=== PATIENT | male | born 1990 | race Caucasian/White ===

== ENCOUNTER 2023-04-12 20:03 | Outpatient (OUT) | payer OTHER, SELFPAY | END 2023-04-12 20:04 | disposition home or self-care (01) | LOC: SLEEP 20:03 | PROVIDERS: PCP Internal Medicine; Visit Provider Internal Medicine | DX: G47.33 Obstructive sleep apnea (adult) (pediatric) (principal) | CPT/HCPCS: 95810 ==

== ENCOUNTER 2023-05-20 21:00 | Outpatient (OUT) | payer OTHER, SELFPAY ==
--- OUTSIDE RECORDS SUMMARY | 2023-05-20 21:03 | XMS_ITS | CCD ---
Author Organization [facility] Care Team Providers Care Drop Board Man Name Role Phone Ok Whyte Primary Care Provider SHAIKH ONTIVEROS Consulting Unavailable SHAIKH ONTIVEROS Attending Unavailable SHAIKH ONTIVEROS Admitting Unavailable SHAIKH ONTIVEROS Primary Care Unavailable Shaikh Ontiveros MD Primary Care Provider Colt BADILLO Attending Unavailable Shaikh Ontiveros MD Primary Care Provider SHAIKH ONTIVEROS Attending Unavailable Shaikh Ontiveros MD Primary Care Provider [phone] SHAIKH ONTIVEROS Referring Unavailable SHAIKH ONTIVEROS Primary Care Unavailable SHAIKH ONTIVEROS Referring Unavailable SHAIKH ONTIVEROS Primary Care Unavailable SHAIKH ONTIVEROS Primary Care Unavailable Medications Current Medications Medication Drug Class(es) Dates Sig (Normalized) Sig (Original) diclofenac sodium 75 mg delayed release oral tablet (1 source) Nonsteroidal Anti-inflammatory Drug Start: 01-26-2018 take 1 tablet by mouth twice daily diclofenac (VOLTAREN) 75 MG EC tablet Indications: Bilateral plantar fasciitis Take 1 tablet by mouth 2 times daily 60 tablet 0 01/26/2018 Active FLUoxetine 10 mg oral capsule (1 source) Serotonin Reuptake Inhibitor Start: 07-27-2019 take 1 capsule by mouth once daily FLUoxetine (PROZAC) 10 MG capsule Indications: Dysthymia Take 1 capsule by mouth daily 90 capsule 0 07/27/2019 Active gabapentin 400 mg oral capsule (11 sources) Anti-epileptic Agent Start: 06-21-2019 End: 07-21-2019 take 1 capsule by mouth three times daily gabapentin (NEURONTIN) 400 MG capsule Indications: Cervical radicular pain Take 1 capsule by mouth 3 times daily for 30 days. 90 capsule 0 06/21/2019 Active meloxicam 15 mg oral tablet (2 sources) Nonsteroidal Anti-inflammatory Drug Start: 08-30-2019 End: 01-20-2021 take 1 tablet by mouth once daily meloxicam (MOBIC) 15 MG tablet Indications: Bilateral plantar fasciitis Take 1 tablet by mouth daily 90 tablet 0 08/30/2019 01/20/2021 Discontinued (LIST CLEANUP) naproxen 500 mg oral tablet (3 sources) Nonsteroidal Anti-inflammatory Drug Start: 01-20-2021 take 1 tablet by mouth twice daily naproxen (NAPROSYN) 500 MG tablet Take 1 tablet by mouth 2 times daily 20 tablet 0 01/20/2021 Active Problems Active Problems Problem Classification Problem Date Documented Date Episodic/Chronic Anxiety disorders (17 sources) Anxiety; Translations: [Anxiety disorder, unspecified] Onset: 10-01-2016 10-01-2016 Chronic Headache; including migraine (4 sources) Episodic tension-type headache; Translations: [Episodic tension-type headache, not intractable] Onset: 03-18-2023 03-18-2023 Chronic Immunizations and screening for infectious disease (6 sources) Patient encounter status; Translations: [Encounter for screening for infections with a predominantly sexual mode of transmission] Onset: 03-18-2023 03-18-2023 Episodic Malaise and fatigue (4 sources) Fatigue; Translations: [Chronic fatigue, unspecified] Onset: 03-18-2023 03-18-2023 Chronic Mood disorders (2 sources) Bipolar II disorder; Translations: [Bipolar II disorder] Onset: 03-18-2023 03-18-2023 Chronic Other connective tissue disease (1 source) Pain in right hand; Translations: [Pain in right hand] Episodic Residual codes; unclassified (12 sources) Chronic pain; Translations: [Chronic left shoulder pain] Onset: 10-01-2016 10-01-2016 Chronic Residual codes; unclassified (4 sources) Obstructive sleep apnea syndrome; Translations: [Obstructive sleep apnea (adult) (pediatric)] Onset: 03-18-2023 03-18-2023 Chronic Sexually transmitted infections (not HIV or hepatitis) (1 source) Sexually transmitted infectious disease; Translations: [STI (sexually transmitted infection)] Episodic Spondylosis; intervertebral disc disorders; other back problems (1 source) Cervical nerve root pain; Translations: [Cervical radicular pain] Episodic Superficial injury; contusion (1 source) Contusion of right elbow; Translations: [Contusion of right elbow, initial encounter] Episodic Viral infection (1 source) Viral disease; Translations: [Viral infection, unspecified] Episodic Past or Other Problems Problem Classification Problem Date Documented Date Episodic/Chronic Fluid and electrolyte disorders (15 sources) Hypokalemia; Translations: [Hypokalemia] Onset: 10-01-2016 10-01-2016 Episodic Genitourinary symptoms and ill-defined conditions (15 sources) Delay when starting to pass urine; Translations: [Hesitancy of micturition] Onset: 10-01-2016 10-01-2016 Episodic Other injuries and conditions due to external causes (15 sources) Pseudoarthrosis of spine; Translations: [Unspecified fracture of unspecified lumbar vertebra, subsequent encounter for fracture with nonunion] Onset: 12-08-2016 12-08-2016 Episodic Other lower respiratory disease (4 sources) Shortness of breath; Translations: [SHORTNESS OF BREATH] Onset: 10-10-2020 Episodic Other non-traumatic joint disorders (3 sources) Chronic pain of left upper limb; Translations: [Pain in left shoulder] Onset: 10-01-2016 10-01-2016 Episodic Other non-traumatic joint disorders (2 sources) Pain in elbow; Translations: [Elbow Pain] Onset: 08-03-2022 Episodic Residual codes; unclassified (15 sources) High risk sexual behavior; Translations: [High risk heterosexual behavior] Onset: 01-05-2017 01-05-2017 Episodic Residual codes; unclassified (1 source) High risk heterosexual behavior; Translations: [High risk heterosexual behavior] Episodic Results Test Name Value Interpretation Reference Range Facility Chlamydia/GC DNA, Uron 04-21 Chlamydia Probe, Ur Negative Normal NEG [facility] Comment on above: Result Comment: CHLA MYDIA TRACHOMATIS DNA not detected by nucleic acid amplification. This test is intended for medical purposes only and is not valid for the evaluation of suspected sexual abuse or for other forensic purposes. In certain contexts, culture may be required to meet applicable laws and regulations for diagnosis of C. trachomatis and N. gonorrhoeae infections. Per 2014 CDC recommendations, this test does not include confirmation of positive results by an alternative nucleic acid target. Performed By: #### U CGP #### [facility] [address] [place] [id number] Patient Safety Manager: Ethan Amezcua MD Gonorrhea Probe, Ur Negative Normal NEG [facility] Comment on above: Result Comment: NEIS SERIA GONORRHOEAE DNA not detected by nucleic acid amplification. This test is intended for medical purposes only and is not valid for the evaluation of suspected sexual abuse or for other forensic purposes. In certain contexts, culture may be required to meet applicable laws and regulations for diagnosis of C. trachomatis and N. gonorrhoeae infections. Per 2014 CDC recommendations, this test does not include confirmation of positive results by an alternative nucleic acid target. Performed By: #### U CGP #### [facility] [address] [place] [id number] Patient Safety Manager: Ethan Amezcua MD HIV Ag/Abon 04-13-2023 HIV Ag/Ab Non-Reactive Normal [facility] Comment on above: Result Comment: No l aboratory evidence of HIV infection. If acute HIV infection is suspected, consider testing for HIV-1 RNA. Performed By: #### T REP, HIVCMB, HSVPR, HBS, AHCV #### [facility] [address] [place] [id number] Patient Safety Manager: Ethan Amezcua MD Hep B Surf Agon 04-13-2023 Hep B Surf Ag Non-Reactive Normal [facility] Comment on above: Performed By: #### T REP, HIVCMB, HSVPR, HBS, AHCV #### [facility] [address] [place] [id number] Patient Safety Manager: Ethan Amezcua MD Hep C Abon 04-13-2023 Hep C Ab Non-Reactive Normal [facility] Comment on above: Result Comment: The hepatitis C procedure used in our laboratory is a Chemiluminescent test specific for three recombinant HCV antigens. A negative anti-HCV result indicates that the antibodies to hepatitis C virus are not present at this time. Individuals with reactive anti-HCV should be considered infected and infectious until proven otherwise. Confirmation of all equivocal or reactive results is recommended by ordering HCV RNA by PCR. Performed By: #### T REP, HIVCMB, HSVPR, HBS, AHCV #### [facility] [address] [place] [address] [id number] Patient Safety Manager: Ethan Amezcua MD Herpes Profileon 04-13-2023 Herpes Type I, IgG 1.29 High <0.91 [facility] Comment on above: Result Comment: Reference Range: <=0.90 Negative 0.91-1.09 Equivocal >=1.10 Positive Performed By: #### T REP, HIVCMB, HSVPR, HBS, AHCV #### [address] [id number] Patient Safety Manager: Ethan Amezcua MD Herpes Type I/II,IgM 0.71 Normal <0.91 [facility] Comment on above: Result Comment: Reference Range: <=0.90 Negative 0.91-1.09 Equivocal >=1.10 Positive If positive, an IgM result indicates a current or recent infection. This test does not differentiate type I from type II. No current reference test is available for this. If IgG tests are ordered and are negative, consider retesting in 2 to 3 weeks. Performed By: #### T REP, HIVCMB, HSVPR, HBS, AHCV #### [facility] [address] [place] [address] [phone] Patient Safety Manager: Ethan Amezcua MD Herpes Type II, IgG 3.88 High <0.91 [facility] Comment on above: Result Comment: Reference Range: <=0.90 Negative 0.91-1.09 Equivocal >=1.10 Positive Performed By: #### T REP, HIVCMB, HSVPR, HBS, AHCV #### [address] [id number] Patient Safety Manager: Ethan Amezcua MD T.pallidum Ab Screenon 04-12 T.pallidum Ab Screen Non-Reactive Normal NR [facility] Comment on above: Result Comment: T. pallidum antibodies are not detected. There is no serological evidence of infection with T. pallidum (early primary syphilis cannot be excluded). Retest in 2-4 weeks if syphilis is clinically suspect. Performed By: #### T REP, HIVCMB, HSVPR, HBS, AHCV #### [facility] [address] [place] [address] Patient Safety Manager: Ethan Amezcua MD No Panel Informationon 08-03 No acute radiographic abnormality. [facility] EXAMINATION: THREE XRAY VIEWS OF THE RIGHT ELBOW; THREE XRAY VIEWS OF THE RIGHT HAND 08/03/2022 2:51 pm COMPARISON: None. HISTORY: ORDERING SYSTEM PROVIDED HISTORY: pain after fall 2 weeks ago TECHNOLOGIST PROVIDED HISTORY: pain after fall 2 weeks ago FINDINGS: Right elbow: No acute fracture dislocation. No joint effusion. Right hand: No acute fracture or dislocation. No appreciable soft tissue swelling. [facility] Matti Stanley MD - 08/03/2022 EXAMINATION: THREE XRAY VIEWS OF THE RIGHT ELBOW; THREE XRAY VIEWS OF THE RIGHT HAND 08/03/2022 2:51 pm COMPARISON: None. HISTORY: ORDERING SYSTEM PROVIDED HISTORY: pain after fall 2 weeks ago TECHNOLOGIST PROVIDED HISTORY: pain after fall 2 weeks ago FINDINGS: Right elbow: No acute fracture dislocation. No joint effusion. Right hand: No acute fracture or dislocation. No appreciable soft tissue swelling. IMPRESSION: No acute radiographic abnormality. [facility] No Panel InformationOrdered By: Matti Stanely on 08-03-2022 [facility] Work Phone: XR ELBOW RIGHT (MIN 3 VIEWS) on 08-03-2022 XR ELBOW RIGHT (MIN 3 VIEWS) EXAMINATION: THREE XRAY VIEWS OF THE RIGHT ELBOW; THREE XRAY VIEWS OF THE RIGHT HAND 08/03/2022 2:51 pm COMPARISON: None. HISTORY: ORDERING SYSTEM PROVIDED HISTORY: pain after fall 2 weeks ago TECHNOLOGIST PROVIDED HISTORY: pain after fall 2 weeks ago FINDINGS: Right elbow: No acute fracture dislocation. No joint effusion. Right hand: No acute fracture or dislocation. No appreciable soft tissue swelling. IMPRESSION: No acute radiographic abnormality. Interpreted by: Matti Stanley MD Signed by: Matti Stanley MD 08/03/22 Final result Normal [facility] Radiology Study observation (narrative) [facility] XR HAND RIGHT (MIN 3 VIEWS)o n 08-03-2022 XR HAND RIGHT (MIN 3 VIEWS) EXAMINATION: THREE XRAY VIEWS OF THE RIGHT ELBOW; THREE XRAY VIEWS OF THE RIGHT HAND 08/03/2022 2:51 pm COMPARISON: None. HISTORY: ORDERING SYSTEM PROVIDED HISTORY: pain after fall 2 weeks ago TECHNOLOGIST PROVIDED HISTORY: pain after fall 2 weeks ago FINDINGS: Right elbow: No acute fracture dislocation. No joint effusion. Right hand: No acute fracture or dislocation. No appreciable soft tissue swelling. IMPRESSION: No acute radiographic abnormality. Interpreted by: Matti Stanley MD Signed by: Matti Stanley MD 08/03/22 Final result Normal [facility] Radiology Study observation (narrative) [facility] Residential Documentson 11-28-2021 Residential Documents [id number] Normal [facility] COVID-19, Rapidon 01-20-2021 SARS-CoV-2 (COVID-19) RNA SHEN+probe Ql (Unsp spec) Not detected Not Detected [facility] Comment on above: Rapid NAAT: The specimen is NEGATIVE for SARS-CoV-2, the novel coronavirus associated with COVID-19. The ID NOW COVID-19 assay is designed to detect the virus that causes COVID-19 in patients with signs and symptoms of infection who are suspected of COVID-19. An individual without symptoms of COVID-19 and who is not shedding SARS-CoV-2 virus would expect to have a negative (not detected) result in this assay. Negative results should be treated as presumptive and, if inconsistent with clinical signs and symptoms or necessary for patient management, should be tested with an alternative molecular assay. Negative results do not preclude SARS-CoV-2 infection and should not be used as the sole basis for patient management decisions. Fact sheet for Healthcare Providers: https://www.fda.gov/media/925761/download Fact sheet for Patients: https://www.fda.gov/media/905816/download Methodology: Isothermal Nucleic Acid Amplification Specimen Description .NASOPHARYNGEAL SWAB [facility] CBC AUTO DIFFon 10-10-2020 BASO # 0.0 103/ul Normal 0.0-0.1 [facility] Comment on above: Performed By: #### C BC #### [facility] [address] [place], [place] [id number] Papa Vandana Basophils/100 WBC (Bld) 0.4 % Normal 0.2-2.0 [facility] Comment on above: Performed By: #### C BC #### [facility] [address] [place], [place] [id number] Papa Vandana EO # 0.1 103/ul Normal 0.0-0.7 [facility] Comment on above: Performed By: #### C BC #### [facility] [address] [place], [place] [id number] Papa Vandana Eosinophils/100 WBC (Bld) 1.0 % Normal 0.9-7.0 [facility] Comment on above: Performed By: #### C BC #### [facility] [address] [place] [address] Papa Vandana Erythrocyte distribution width (RBC) [Ratio] 12.3 % Normal 11.0-15.0 [facility] Comment on above: Performed By: #### C BC #### [facility] [address] [place], [place] [id number] Papa Vandana Hematocrit (Bld) [Volume fraction] 50.6 % Normal 42.0-54.0 [facility] Comment on above: Performed By: #### C BC #### [facility] [address] [place], [place] [id number] Papa Vandana Hemoglobin (Bld) [Mass/Vol] 16.8 g/dL Normal 14.0-18.0 [facility] Comment on above: Performed By: #### C BC #### [facility] [address] [place] [address] Papa Vandana IG # 0.01 10e3/ul Normal 0.00-0.03 [facility] Comment on above: Performed By: #### C BC #### [facility] [address] [place] [address] Papa Vandana IG % 0.1 % Normal 0.0-0.5 [facility] Comment on above: Performed By: #### C BC #### [facility] [address] [phone] Papa Vandana LYMPH # 1.4 103/ul Normal 1.2-3.8 [facility] Comment on above: Performed By: #### C BC #### [facility] [address] [place] [id number] Papa Vandana Lymphocytes/100 WBC (Bld) 17.9 % Critically low 20.5-60.0 [facility] Comment on above: Performed By: #### C BC #### [facility] [address] [place], [place] [id number] Appa Vandana MANUAL DIFF REQ NO Normal [facility] Comment on above: Performed By: #### C BC #### [facility] [address] [place], [place] [id number] Papa Vandana MCH (RBC) [Entitic mass] 29.6 pg Normal 25.9-34.0 [facility] Comment on above: Performed By: #### C BC #### [facility] [address] [place], [place] [id number] Papa Vandana MCHC (RBC) [Mass/Vol] 33.2 g/dL Normal 29.9-35.2 [facility] Comment on above: Performed By: #### C BC #### [facility] [address] [place], [place] [id number] Papa Vandana MCV (RBC) [Entitic vol] 89.2 fL Normal 80.0-94.0 [facility] Comment on above: Performed By: #### C BC #### [facility] [address] [place], [place] [id number] Papa Vandana MONO # 0.5 103/ul Normal 0.3-0.8 [facility] [place] [facility] Comment on above: Performed By: #### C BC #### [facility] [address] [place], [place] [id number] Papa Vandana Monocytes/100 WBC (Bld) 6.1 % Normal 1.7-12.0 [facility] [place] [facility] Comment on above: Performed By: #### C BC #### [facility] [address] [place], [place] [id number] Papastefanie Danielleen NEUT # 5.8 103/ul Normal 1.4-6.5 [facility] [place] [facility] Comment on above: Performed By: #### C BC #### [facility] [address] [place], [place] [id number] Papa Ross Neutrophils/100 WBC (Bld) 74.5 % Normal 43.0-75.0 [facility] [place] [facility] Comment on above: Performed By: #### C BC #### [facility] [address] [place], [place] [id number] Papastefanie Ross Platelet mean volume (Bld) [Entitic vol] 10.4 fL Normal 9.5-13.5 [facility] [place] [facility] Comment on above: Performed By: #### C BC #### [facility] [address] [place], [place] [id number] Papa Vandana PLT 268 103/ul Normal 150-450 [facility] [place] [facility] Comment on above: Performed By: #### C BC #### [facility] [address] [place], [place] [id number] Papa Vandana RBC 5.67 106/ul Normal 4.70-6.10 [facility] [place] [facility] Comment on above: Performed By: #### C BC #### [facility] [address] [place], [place] [id number] Papa Vandana WBC 7.8 103/ul Normal 4.0-11.0 [facility] [place] [facility] Comment on above: Performed By: #### C BC #### [facility] [address] [place], [place] [id number] Papa Ross PROF 14(COMP METB)on 021 Albumin [Mass/Vol] 4.4 g/dL Normal 3.5-5.0 [facility] Comment on above: Performed By: #### C MP #### [facility] [address] [place], [place] [id number] Papa Vandana Albumin/Globulin [Mass ratio] 1.5 {ratio} Normal [facility] Comment on above: Performed By: #### C MP #### [facility] [address] [place], [place] [phone] Papa Vandana ALP [Catalytic activity/Vol] 59 U/L Normal 38-126 [facility] Comment on above: Performed By: #### C MP #### [facility] [address] [place], [place] [id number] Papa Vandana ALT [Catalytic activity/Vol] 52 U/L Normal 21-72 [facility] Comment on above: Performed By: #### C MP #### [facility] [address] [place] [address] Papa Vandana Anion gap [Moles/Vol] 11.9 mmol/L Normal [facility] Comment on above: Performed By: #### C MP #### [facility] [address] [place] [address] Papa Vandana AST [Catalytic activity/Vol] 21 U/L Normal 17-59 [facility] Comment on above: Performed By: #### C MP #### [facility] [address] [place] [address] Papa Vandana Bilirubin [Mass/Vol] 0.6 mg/dL Normal 0.2-1.3 [facility] Comment on above: Performed By: #### C MP #### [facility] [address] [place], [place] [id number] Papa Vandana Calcium [Mass/Vol] 9.2 mg/dL Normal 8.4-10.2 [facility] Comment on above: Performed By: #### C MP #### [facility] [address] [place] [address] Papa Vandana Chloride [Moles/Vol] 103 mmol/L Normal 98-107 [facility] Comment on above: Performed By: #### C MP #### [facility] [address] [place], [place] [id number] Papa Vandana CO2 [Moles/Vol] 31.1 mmol/L Critically high 22.0-30.0 [facility] Comment on above: Performed By: #### C MP #### [facility] [address] [place] [address] Papa Vandana Creatinine [Mass/Vol] 1.23 mg/dL Normal 0.66-1.25 [facility] Comment on above: Performed By: #### C MP #### [facility] [address] [place], [place] [address] Papa Vandana EGFR-AF MARTINIQUAIS >60 Normal >=60 [facility] Comment on above: Performed By: #### C MP #### [facility] [address] [place], [place] [address] Papa Vandana EGFR-NON AF MARTINIQUAIS >60 Normal >=60 [facility] [place] [facility] Comment on above: Performed By: #### C MP #### [facility] [address] [place], [place] [address] Papa Vandana Globulin (S) [Mass/Vol] 3.0 g/dL Normal [facility] [place] [facility] Comment on above: Performed By: #### C MP #### [facility] [address] [address] Papa Vandana Glucose [Mass/Vol] 86 mg/dL Normal 74-106 [facility] Comment on above: Performed By: #### C MP #### [facility] [address] [place], [place] [id number] Papa Vandana Potassium [Moles/Vol] 4.0 mmol/L Normal 3.4-5.0 [facility] [place] [facility] Comment on above: Performed By: #### C MP #### [facility] [address] [place], [place] [id number] Papa Vandana Protein [Mass/Vol] 7.4 g/dL Normal 6.1-8.2 [facility] Comment on above: Performed By: #### C MP #### [facility] [address] [place] [address] Papa Vandana Sodium [Moles/Vol] 142 mmol/L Normal 137-145 [facility] Comment on above: Performed By: #### C MP #### [facility] [address] [place], [place] [id number] Papa Vandana Urea nitrogen [Mass/Vol] 18.0 mg/dL Normal 9.0-20.0 [facility] [place] [facility] Comment on above: Performed By: #### C MP #### [facility] [address] [place], [place] [id number] Papa Vandana Urea nitrogen/Creatinine [Mass ratio] 14.6 mg/mg Normal [facility] [place] [facility] Comment on above: Performed By: #### C #### [facility] [address] [place], [place] [address] Papa Ross XR CERVICAL SPINE (2-3 VIEWS )on 06-21-2019 Minimal reversal of the normal cervical lordosis without acute abnormality. [place], [place] EXAMINATION: 5 XRAY VIEWS OF THE CERVICAL SPINE 06/21/2019 11:56 am COMPARISON: Cervical spine radiographs performed 02/20/2016. HISTORY: ORDERING SYSTEM PROVIDED HISTORY: Cervical radicular pain TECHNOLOGIST PROVIDED HISTORY: pain FINDINGS: There is minimal reversal of the normal cervical lordosis. The vertebral body heights are maintained. The disc spaces are maintained. The facet joints are aligned. There is no spondylolisthesis. The prevertebral soft tissues are unremarkable. The lung apices are without acute process. [place], [place] Ashutosh, [employer] Incoming Radiant Results From [employer] - 06/21/2019 1:13 PM EDT EXAMINATION: 5 XRAY VIEWS OF THE CERVICAL SPINE 06/21/2019 11:56 am COMPARISON: Cervical spine radiographs performed 02/20/2016. HISTORY: ORDERING SYSTEM PROVIDED HISTORY: Cervical radicular pain TECHNOLOGIST PROVIDED HISTORY: pain FINDINGS: There is minimal reversal of the normal cervical lordosis. The vertebral body heights are maintained. The disc spaces are maintained. The facet joints are aligned. There is no spondylolisthesis. The prevertebral soft tissues are unremarkable. The lung apices are without acute process. IMPRESSION: Minimal reversal of the normal cervical lordosis without acute abnormality. [place], [place] HIV Screenon 09-29-2018 HIV Ag/Ab NONREACTIVE NONREACTIVE [place], [place] Comment on above: No laboratory eviden ce of HIV infection. If acute HIV infection is suspected, consider testing for HIV-1 RNA. T. Pallidum Abon 09-29-2018 T. pallidum, IgG NONREACTIVE NONREACTIVE [place], [place] Comment on above: T. pallidum antibodies are not detected. There is no serological evidence of infection with T. pallidum (early primary syphilis cannot be excluded). Retest in 2-4 weeks if syphilis is clinically suspect. Vital Signs Date Time Vital Sign Value Performing Clinician Facility 03-18-2023 15:32-0500 Body height 182.9 cm Shaikh Weston BECKMAN Work Phone: [facility] 03-18-2023 15:32-0500 Body mass index (BMI) [Ratio] 27.26 kg/m2 Shaikh Weston BECKMAN Work Phone: [facility] 03-18-2023 15:32-0500 Body temperature 97.81 [degF] Shaikh Weston BECKMAN Work Phone: [facility] 03-18-2023 15:32-0500 Body weight 91.17 kg Shaikh Weston BECKMAN Work Phone: [facility] 03-18-2023 15:32-0500 Diastolic blood pressure 76 mm[Hg] Shaikh Weston BECKMAN Work Phone: [facility] 03-18-2023 15:32-0500 Heart rate 85 /min Shaikh Weston BECKMAN Work Phone: [facility] 03-18-2023 15:32-0500 SaO2% (BldA) [Mass fraction] 97 % Shaikh Weston BECKMAN Work Phone: [facility] 03-18-2023 15:32-0500 Systolic blood pressure 104 mm[Hg] Shaikh Weston BECKMAN Work Phone: [facility] 08-03-2022 14:38-0400 Diastolic blood pressure 79 mm[Hg] Shaikh Weston BECKMAN Work Phone: [facility] 08-03-2022 14:38-0400 Systolic blood pressure 117 mm[Hg] Shaikh Weston BECKMAN Work Phone: [facility] 08-03-2022 14:37-0400 Body mass index (BMI) [Ratio] 28.48 kg/m2 Shaikh Weston BECKMAN Work Phone: [facility] 08-03-2022 14:37-0400 Body temperature 98.4 [degF] Shaikh Weston BECKMAN Work Phone: [facility] [employer] 08-03-2022 14:37-0400 Body weight 95.25 kg Shaikh Weston BECKMAN Work Phone: [facility] [employer] 08-03-2022 14:37-0400 Heart rate 81 /min Shaikh Weston BECKMAN Work Phone: [facility] [employer] 08-03-2022 14:37-0400 Respiratory rate 16 /min Shaikh Weston BECKMAN Work Phone: [facility] [employer] 08-03-2022 14:37-0400 SaO2% (BldA) [Mass fraction] 97 % Shaikh Weston BECKMAN Work Phone: [facility] [employer] 01-20-2021 10:55-0500 Body mass index (BMI) [Ratio] 28.48 kg/m2 Ehsan Rivas MD Work Phone: [employer] 01-20-2021 10:55-0500 Body temperature 98.49 [degF] Ehsan Rivas MD Work Phone: [employer] 01-20-2021 10:55-0500 Body weight 95.25 kg Ehsan Rivas MD Work Phone: [employer] 01-20-2021 10:55-0500 Diastolic blood pressure 76 mm[Hg] Ehsan Rivas MD Work Phone: [employer] 01-20-2021 10:55-0500 Heart rate 77 /min Ehsan Rivas MD Work Phone: [employer] 01-20-2021 10:55-0500 Respiratory rate 16 /min Ehsan Rivas MD Work Phone: [employer] 01-20-2021 10:55-0500 SaO2% (BldA) [Mass fraction] 99 % Ehsan Rivas MD Work Phone: [facility] 01-20-2021 [id number] Systolic blood pressure 132 mm[Hg] Ehsan Rivas MD Work Phone: [facility] Encounters Encounter Date Encounter Type Care Provider Facility Start: 04-21-2023 End: 04-22-2023 ambulatory [facility] Start: 04-12-2023 End: 04-13-2023 ambulatory [facility] Start: 03-18-2023 End: 03-18-2023 ambulatory [facility] Not Available Start: 03-18-2023 End: 03-18-2023 Office outpatient visit 25 minutes Shaikh Weston BECKMAN Work Phone: [facility] Comment on above: Chronic fatigue (Betsy benjamín Dx); VAN (obstructive sleep apnea); Screening for STD (sexually transmitted disease); Episodic tension-type headache, not intractable Start: 08-03-2022 Emergency department patient visit [facility] Start: 08-03-2022 End: 08-03-2022 Emergency department patient visit Shaikh Weston BECKMAN Work Phone: [facility] ED Comment on above: Contusion of right e lbow, initial encounter (Primary Dx); Right hand pain Start: 10-31-2021 ambulatory Colt BADILLO Facility: Residential Start: 07-15-2021 End: 07-15-2021 Subsequent hospital visit by physician Drake Covid Screening Schedule [facility] Covid Screening Comment on above: Arrived Start: 01-20-2021 End: 01-20-2021 Emergency department patient visit Ehsan Rivas MD Work Phone: [facility] ED Comment on above: Viral illness (Prima ry Dx) Start: 10-10-2020 End: 10-11-2020 ambulatory [facility] Facility: Start: 03-20-2020 End: 03-20-2020 Subsequent hospital visit by physician Ok [facility]YS[facility] Comment on above: STI (sexually transm itted infection) Start: 07-28-2019 End: 07-28-2019 Subsequent hospital visit by physician Farhat Gillette [facility] Physical Therapy Start: 07-25-2019 End: 07-25-2019 Subsequent hospital visit by physician Lucas Longoria [facility] Physical Therapy Comment on above: Arrived Start: 07-21-2019 End: 07-21-2019 Subsequent hospital visit by physician Lucas Longoria [facility] Physical Therapy Comment on above: Arrived Start: 07-18-2019 End: 07-18-2019 Subsequent hospital visit by physician Kendrick Iyer [facility] Physical Therapy Start: 07-14-2019 End: 07-14-2019 Subsequent hospital visit by physician Cheri Huang [facility] Physical Therapy Comment on above: Arrived Start: 07-11-2019 End: 07-11-2019 Subsequent hospital visit by physician Kendrick Iyer [facility] Physical Therapy Comment on above: Arrived Start: 07-07-2019 End: 07-07-2019 Subsequent hospital visit by physician Cheri Huang [facility] Physical Therapy Start: 06-28-2019 End: 06-28-2019 Subsequent hospital visit by physician Farhat Gillette [facility] Physical Therapy Comment on above: Arrived Start: 06-21-2019 End: 06-23-2019 Subsequent hospital visit by physician [facility] Erika Haley Room 4 [facility] Radiology Comment on above: Cervical radicular p ain Start: 09-29-2018 End: 09-29-2018 Subsequent hospital visit by physician Ok Whyte [facility] Laboratory Comment on above: High risk heterosexu al behavior Procedures Date Procedure Procedure Detail Performing Clinician Start: 08-03-2022 End: 08-03-2022 Radex elbow complete minimum 3 views [place]t Park PA-C Work Phone: Start: 01-20-2021 COVID-19, RAPID Ehsan campbell MD Work Phone: Start: 06-21-2019 Radex spine cervical 2 or 3 views Ok Osorio Might Work Phone: Start: 09-29-2018 Antibody hiv-1&hiv-2 single result Ok Osorio Might Work Phone: Start: 09-29-2018 T. PALLIDUM AB Ok Osorio Might Work Phone: Plan of Treatment Date Care Activity Detail Author Start: 03-18-2023 End: 03-18-2024 CBC W Auto Differential panel - Blood CBC and differential Lab Routine Chronic fatigue Expected: 03/18/2023 (Approximate), Expires: 03/18/2024 [facility] Healthcare Comment on above: Expected: 03/18/2023 (Approximate), Expires: 03/18/2024 Start: 03-18-2023 End: 03-18-2024 CHLAMYDIA/GC BY PCR URINE ([facility]) CHLAMYDIA/GC BY PCR URINE ([facility]) Lab Routine Screening for STD (sexually transmitted disease) Expected: 03/18/2023 (Approximate), Expires: 03/18/2024 [facility] Healthcare Comment on above: Expected: 03/18/2023 (Approximate), Expires: 03/18/2024 Start: 03-18-2023 End: 03-18-2024 Hepatitis B virus surface Ag [Presence] in Serum or Plasma by Immunoassay Hepatitis B surface antigen Lab Routine Screening for STD (sexually transmitted disease) Expected: 03/18/2023 (Approximate), Expires: 03/18/2024 [facility] Healthcare Comment on above: Expected: 03/18/2023 (Approximate), Expires: 03/18/2024 Start: 03-18-2023 End: 03-18-2024 Hepatitis C virus Ab [Presence] in Serum or Plasma by Immunoassay Hepatitis C antibody Lab Routine Screening for STD (sexually transmitted disease) Expected: 03/18/2023 (Approximate), Expires: 03/18/2024 [facility] Healthcare Comment on above: Expected: 03/18/2023 (Approximate), Expires: 03/18/2024 Start: 03-18-2023 End: 03-18-2024 HIV-1/HIV-2 antigen/antibody combination immunoassay HIV 1/2 antibodies, rapid Lab Routine Screening for STD (sexually transmitted disease) Expected: 03/18/2023 (Approximate), Expires: 03/18/2024 [facility] Healthcare Comment on above: Expected: 03/18/2023 (Approximate), Expires: 03/18/2024 Start: 03-18-2023 End: 03-18-2024 HSV 1/2 AB (IGM),IFA W/RFL TO TITER HSV 1/2 AB (IGM),IFA W/RFL TO TITER Lab Routine Screening for STD (sexually transmitted disease) Expected: 03/18/2023 (Approximate), Expires: 03/18/2024 [facility] Comment on above: Expected: 03/18/2023 (Approximate), Expires: 03/18/2024 Start: 03-18-2023 End: 03-18-2024 HSV 1/2 IGG,TYPE SPECIFIC AB HSV 1/2 IGG,TYPE SPECIFIC AB Lab Routine Screening for STD (sexually transmitted disease) Expected: 03/18/2023 (Approximate), Expires: 03/18/2024 [facility] Comment on above: Expected: 03/18/2023 (Approximate), Expires: 03/18/2024 Start: 03-18-2023 End: 03-18-2024 Reagin Ab [Presence] in Serum by RPR RPR Lab Routine Screening for STD (sexually transmitted disease) Expected: 03/18/2023 (Approximate), Expires: 03/18/2024 [facility] Comment on above: Expected: 03/18/2023 (Approximate), Expires: 03/18/2024 Start: 03-18-2023 End: 03-18-2024 TSH W/REFLEX TO FT4 TSH W/REFLEX TO FT4 Lab Routine Chronic fatigue Expected: 03/18/2023 (Approximate), Expires: 03/18/2024 [facility] Work Phone: Comment on above: Expected: 03/18/2023 (Approximate), Expires: 03/18/2024 Start: 10-09-2022 Influenza vaccination Influenza Vacc ine (#1) [facility] Start: 09-08-2022 Influenza vaccination Flu vacc ine (Season Ended) [facility] Start: 10-09-2021 Influenza vaccination Flu vacc ine (Season Ended) [facility] Start: 10-09-2020 Influenza vaccination Flu vaccine (# 1) [facility] Start: 06-20-2020 DTaP/Tdap/Td vaccine (1 - Tdap) DTaP/Tdap/Td vaccine (1 - Tdap) [facility]- [place], [place] Comment on above: Postponed from 11/24 (Patient Refused) Start: 01-29-2020 End: 01-29-2020 Office Visit 01/29/2020 Office Visit Primary Care Ok Whyte, COMMERCIAL CENSUS TAKER - HYDRAULIC JACK OPERATOR [address], [place] [id number] [facility] Start: 12-03-2019 Influenza vaccination Flu vacc ine (Season Ended) [place], [place] Comment on above: Postponed from 10/09 (Patient Refused) Start: 12-03-2019 Varicella vaccine (1 of 2 - 2-dose childhood series) Varicella vaccine (1 of 2 - 2-dose childhood series) [place] Comment on above: Postponed from 11/24 (Patient Refused) Start: 10-10-2019 Influenza vaccination Flu vaccine (# 1) [facility] Work Phone: Start: 07-28-2019 End: 07-28-2019 Appointment 07/28/2019 Appointment Physical Therapy Farhat Gillette PT [facility] Start: 07-27-2019 End: 07-27-2019 Office Visit 07/27/2019 Office Visit Primary Care Ok Whyte, COMMERCIAL CENSUS TAKER - HYDRAULIC JACK OPERATOR [address] [place] [address] [phone] [facility] Start: 07-25-2019 End: 07-25-2019 Appointment 07/25/2019 Appointment Physical Therapy [facility] Start: 07-21-2019 End: 07-21-2019 Appointment 07/21/2019 Appointment Physical Therapy [facility] Start: 07-21-2019 End: 07-21-2019 Appointment 07/21/2019 Appointment Physical Therapy [facility] Start: 07-18-2019 End: 07-18-2019 Appointment 07/18/2019 Appointment Physical Therapy Kendrick Iyer Physical [facility] Start: 07-14-2019 End: 07-14-2019 Appointment [facility] Start: 07-11-2019 End: 07-11-2019 Appointment 07/11/2019 Appointment Physical Therapy Kendrick Iyer Physical Therapy Start: 07-07-2019 End: 07-07-2019 Appointment 07/07/2019 Appointment Physical Therapy Cheri Huang PTA [facility] Start: 07-04-2019 End: 07-04-2019 Appointment 07/04/2019 Appointment Physical Therapy Kendrick Iyer [facility] Start: 01-26-2019 DTaP/Tdap/Td vaccine (1 - Tdap) DTaP/Tdap/Td vaccine (1 - Tdap) [place] Comment on above: Postponed from 11/24 (Patient Refused) Start: 10-13-2018 End: 10-13-2018 Office Visit 10/13/2018 Office Visit Primary Care Ok Whyte, COMMERCIAL CENSUS TAKER - HYDRAULIC JACK OPERATOR [address] [id number] [phone] [facility] Start: 10-09-2018 Influenza vaccination Flu vaccine (# 1) [place] Start: 2009 DTaP/Tdap/Td vaccine (1 - Tdap) DTaP/Tdap/Td vaccine (1 - Tdap) [facility] Start: 11-25-2003 Varicella Vaccine (1 of 2 - 13+ 2-dose series) Varicella Vaccine (1 of 2 - 13+ 2-dose series) [place], [place] Start: 2002 COVID-19 Vaccine (1) COVID-19 Vaccin e (1) [facility] Start: 2002 [facility] Start: 2002 Depression Screen Depression Screen [facility] Start: 11-25-1995 COVID-19 Vaccine (1) COVID-19 Vaccin e (1) [facility] Start: 11-25-1991 Varicella vaccine (1 of 2 - 2-dose childhood series) Varicella vaccine (1 of 2 - 2-dose childhood series) [facility] Start: 05-26-1991 COVID-19 Vaccine (#1) COVID-19 Vacci ne (#1) [facility] End: 03-20-2020 Chlamydia/GC DNA, Urine Chlamydia/GC DNA, Urine Microbiology Routine STI (sexually transmitted infection) 1 Occurrences starting 03/20/2020 until 03/20/[address] [facility] Work Phone: Comment on above: 1 Occurrences starti ng 03/20/2020 until 03/20/2020 Chlamydia/GC DNA, Urine [place], [place] End: 09-29-2018 Chlamydia/GC DNA, Urine Chlamydia/GC DNA, Urine Microbiology Routine High risk heterosexual behavior 1 Occurrences starting 09/29/2018 until 09/29/2018 [place] Comment on above: 1 Occurrences starti ng 09/29/2018 until 09/29/2018 End: 07-15-2021 COVID-19 SHAHID EDMONDS [facility] [employer] Work Phone: Comment on above: Once for 1 Occurrenc es starting 07/15/2021 until 07/15/2021 Payers Date Payer Category Payer Medicaid [id number] 2022 Medicaid [employer] [employer] [id number] 2022-Present [address] [place] [address] [id number] 2019 Unknown [facility] xxxxxxxxxxxx 2019-Present [phone] [address] [place] [address] xxxxxxxxxxxx [id number] 2014 Self-pay 1990 Unknown [id number] 1990 Unknown [id number] 1990 Unknown [id number] 1990 Unknown [id number] 1990 Unknown [id number] 1990 Unknown [id number] 1959 Unknown [id number] 1959 Unknown [id number] Social History Date Type Detail Facility Start: 10-09-2016 End: 06-21-2019 Tobacco smoking status NHIS Former [place] Start: 06-21-2019 End: 03-18-2023 Alcohol intake Current drinker of alcohol (finding) [place] Start: 06-21-2019 History SDOH Financial 5 [place] Start: 06-21-2019 History SDOH Food Worry 1 [place] Start: 06-21-2019 History SDOH Transpo rt Med 2 [place] Start: 09-22-2016 Tobacco Comment quit 2013 [place], [place] Start: 10-19-2016 Alcohol Comment previos weekly , beer & whiskey [place], [place] Start: 1990 Sex Assigned At Not on file M [place], [place] Exposure to SARS-CoV -2 (event) Unable to assess [place] Start: 10-09-2016 End: 03-19-2020 Tobacco use and exposure Former user [facility] [email or web address] Phone: Start: 01-26-2018 End: 03-18-2023 Alcohol intake Yes [place] Start: 01-20-2021 End: 03-18-2023 [facility] Exposure to SARS-CoV -2 (event) Not sure [facility] History of tobacco use Current smoker [facility] [employer] History of tobacco use Cigarette Smoker B ON [employer] [facility] [employer] Start: 03-18-2023 Tobacco smoking stat us MIIS Smokes tobacco daily [facility] History of tobacco use Passive smoker [facility] Start: 03-18-2023 Tobacco use and exposure Smokeless tobacco non-user [facility] History of Present illness Narrative 03-18-2023 Shaikh Weston MD - 03/18/2023 5:54 PM Caridad Ontiveros MD - 03/18/2023 5:52 PM Caridad Ontiveros MD - 03/18/2023 5:51 PM Caridad Ontiveros MD - 03/18/2023 5:50 PM EST Note Date & Type Note Facility 03-18-2023 History of Presen t illness Narrative Associated Problem(s): Episodic tension-type headache, not intractable Reports mild left sided CALLAWAY behind left ear. Lasts for about 30-45 min, mild, usually develops during day time. Happens 2-3/week and usually resolves on its own or with OTC meds. No associated symptoms. On exam - clear fluid seen behind TM on left side. No mastoid tenderness. Likely tension type CALLAWAY or referred pain from ear. Monitor for now, conservative treatment only for now. Associated Problem(s): Chronic fatigue Reports fatigue, excessive daytime sleepiness. On further questioning, appears to have undiagnosed VAN. Ordered sleep study ,TSH, CBC. Associated Problem(s): Screening for STD (sexually transmitted disease) Patient asking for STD screening. Ordered HIV, Hep C, hep B, RPR, HSV, GC/chlamydia. Associated Problem(s): VAN (obstructive sleep apnea) Reports excessive snoring, witness apneic episodes at night by his GF. Feels unrefreshed and that he did not get enough sleep even after sleeping for 9-10 hours. Sometimes doze off during watching TV. Feels tired all day. Suspect underlying VAN. Will order sleep study for the patient. Check TSH Subjective Patient ID: Inez Franco is a 32 y.o. male who presents for Follow-up. Patient here presents for regular follow up. He reports fatigue, excessive daytime sleepiness, and seems like he has underlying VAN. He also reports Headache, intermittent, resolves within 45 minutes. No neurological symptoms associated with CALLAWAY. No current outpatient medications on file prior to visit. No current facility-administered medications on file prior to visit. No Known Allergies Review of System All systems negative except as mentioned in HPI. Visit Vitals BP 104/76 (BP Location: Left arm, Patient Position: Sitting, BP Cuff Size: Large adult) Pulse 85 Temp 97.8 F (Tympanic) Ht 6' Wt 201 lb SpO2 97% BMI 27.26 kg/m Smoking Status Every Day BSA 2.15 m Patient Health Questionnaire-2 Score: 0 @LABRESULTS@ No images are attached to the encounter. Objective Comfortable, NAD. Physical Exam General: Comfortable, NAD HEENT: AT/NC. Resp: Normal RR, CTA b/l CVS: Normal HR, No mumur noted. Neuro: AAOX 3, moving all extremities. Psych: Calm, co operative, no HI/SI. Assessment/Plan Problem List Items Addressed This Visit VAN (obstructive sleep apnea) Reports excessive snoring, witness apneic episodes at night by his GF. Feels unrefreshed and that he did not get enough sleep even after sleeping for 9-10 hours. Sometimes doze off during watching TV. Feels tired all day. Suspect underlying VAN. Will order sleep study for the patient. Check TSH Chronic fatigue - Primary Reports fatigue, excessive daytime sleepiness. On further questioning, appears to have undiagnosed VAN. Ordered sleep study ,TSH, CBC. Relevant Orders TSH W/REFLEX TO FT4 CBC and differential Episodic tension-type headache, not intractable Reports mild left sided CALLAWAY behind left ear. Lasts for about 30-45 min, mild, usually develops during day time. Happens 2-3/week and usually resolves on its own or with OTC meds. No associated symptoms. On exam - clear fluid seen behind TM on left side. No mastoid tenderness. Likely tension type CALLAWAY or referred pain from ear. Monitor for now, conservative treatment only for now. Screening for STD (sexually transmitted disease) Patient asking for STD screening. Ordered HIV, Hep C, hep B, RPR, HSV, GC/chlamydia. Relevant Orders CHLAMYDIA/GC BY PCR URINE ([facility]) HIV 1/2 antibodies, rapid RPR HSV 1/2 AB (IGM),IFA W/RFL TO TITER HSV 1/2 IGG,TYPE SPECIFIC AB Hepatitis B surface antigen Hepatitis C antibody Follow up if symptoms worsen or fail to improve. documented in this encounter [facility] Discharge instructions 08-03-2022 Discharge InstructionsAttachments Note Date & Type Note Facility 08-03-2022 Hospital Discharg e instructions [place] PA-C - 08/03/2022 4:33 PM EDT Follow-up with orthopedic doctor 7 to 10 days for reevaluation. Take Tylenol or Motrin as directed for discomfort. Promptly return to emergency department for new, changing or worsening of symptoms or other concerns. The following attachments cannot be sent through Care Everywhere.Contusion (Lao)documented in this encounter [facility] [employer] [facility] Evaluation note Note Date & Type Note Facility Evaluation note Diagnosis Viral illness- Primary Unspecified viral infection, in conditions classified elsewhere and of unspecified site documented in this encounter [facility] [employer] Phone: Evaluation note Note Date & Type Note Facility Evaluation note Diagnosis Contusion of right elbow, initial encounter- Primary Right hand pain Pain in limb documented in this encounter [facility] Evaluation note Note Date & Type Note Facility Evaluation note Diagnosis Chronic fatigue- Primary Other malaise and fatigue VAN (obstructive sleep apnea) Obstructive sleep apnea (adult) (pediatric) Screening for STD (sexually transmitted disease) Episodic tension-type headache, not intractable documented in this encounter [facility] Discharge instructions Attachments Note Date & Type Note Facility Hospital Discharge instructions The following attachments cannot be sent through Care Everywhere.Viral Infections (Lao)documented in this encounter [facility] Phone: Assessments Diagnosis Cervical radicular pain Brachial neuritis or radiculitis nos Diagnosis STI (sexually transmitted infection) Venereal disease, unspecified Diagnosis High risk heterosexual behavior Problems related to high-risk sexual behavior Advance Directives No Advanced Directives Records FoundDocuments on File Type Date Recorded Patient 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 Commissioning 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 Pt stated he will be at his next appt but had to have the time moved up d/t going back to work. Cheri Huang, PLATEN PRESS OPERATOR Date: 07/07/2019 documented in this encounter* Kendrick Iyer - 07/11/2019 1:00 PM EDT [facility] Outpatient Physical Therapy Daily Note Patient: Inez Franco III : 1990 CSN #: [id number] Referring Practitioner: MED Hollingsworth Referral Date : 01/24/19 Date: 07/11/2019 Diagnosis: Cervical radicular pain, M54.12 Treatment Diagnosis: Chronic cervical spine pain, cervical spine pain with radiculopathy PT Insurance Information: [employer] Total # of Visits Approved: 10 Per Physician Order Total # of Visits to Date: 2 No Show: 2 Canceled Appointment: 0 Pre-Treatment Pain: 4/10 Subjective: Pain level 4/10, states pain radiates to left upper trap. Denies numbness today but states some days his shld tingles. Exercises: Exercise 1: HEP: upper trap stretch 2x30 sec, levator stretch 2x30 sec, supine chin tuck x10 Manual: Soft Tissue Mobalization: Suboccipital release/manual traction, STM to bilateral upper trapezius Modalities: Moist heat: With IFC to decrease soreness E-stim (parameters): IFC with HP to decrease soreness. Assessment Assessment: Pain level is 4/10, CROM is WLS today. No radicular pain reported. Moderate TTP noted left UT and levator scap. Manual stretching in SL: position to levatot and UT stretching in seated position. Sld strength is 4+/5. Plan to initiate scapular strengthening next session. HEP reviewed andperformed Activity Tolerance Activity Tolerance: Patient Tolerated treatment well Patient Education Pt verbalized/demonstrated good understanding: [x] Yes [] No, pt required further clarification. Post Treatment Pain: 4/10 Plan Times per week: 2-3 Plan weeks: 5 Goals (Total # of Visits to Date: 2) Short Term Goals - Time Frame for Short term goals: 2 weeks Short term goal 1: Patient will be initiated with a HEP []Met []Partially met []Not met Short term goal 2: Patient will tolerate manual techniques to decrease pain and muscle tension []Met []Partially met []Not met []Met []Partially met []Not met []Met []Partially met []Not met [facility] Goals - Time Frame for terminal operations manager goals : 5 weeks terminal operations manager goal 1: Patient will be independent and compliant with a HEP []Met []Partially met []Not met nursing home goal 2: Patient will improve bilateral cervical spine rotation to >70* for ADLs and driving []Met []Partially met []Not met terminal operations manager goal 3: Patient will demonstrate improved deep neck flexor endurance to perform chin tuckand lift for >20 seconds to decrease pain []Met []Partially met []Not met nursing home goal 4: Patient will report decreased pain to < 5/10 at worst. []Met []Partially met []Not met []Met []Partially met []Not met Minutes Tracking: Time In: 1300 Time Out: 1357 Minutes: 57 Timed Code Treatment Minutes: 55 Minutes Kendrick Henley Date: 07/11/2019 documented in this encounter* Cheri Huang, PLATEN PRESS OPERATOR - 07/14/2019 11:30 AM EDT [facility] Outpatient Physical Therapy Daily Note Patient: Inez Franco III : 1990 [facility] #: [id number] Referring Practitioner: MED Hollingsworth Referral Date : 01/24/19 Date: 07/14/2019 Diagnosis: Cervical radicular pain, M54.12 Treatment Diagnosis: Chronic cervical spine pain, cervical spine pain with radiculopathy PT Insurance Information: [place] Total # of Visits Approved: 10 Per Physician Order Total # of Visits to Date: 3 No Show: 2 Canceled Appointment: 0 Pre-Treatment Pain: 2-3/10 Subjective: Pt reports 2/10 pain in L UT region. States he feels pretty good today. Exercises: Exercise 1: HEP: upper trap stretch 2x30 sec, levator stretch 2x30 sec, supine chin tuck x10 Exercise 2: UBE x6 min retro Exercise 3: Tband retracts/ext x15 BTB Exercise 4: PTB diagonal pulls/HAB x15 ea Exercise 5: UT/levator stretch 2x30 Exercise 6: Supine chin 5 sec hold x10 Manual: Soft Tissue Mobalization: Suboccipital release/manual traction, STM to bilateral upper trapezius Other: Heated thermaprobe to L UT/LS to decrease muscle tightness. Modalities: Moist heat: With IFC to decrease soreness E-stim (parameters): IFC with HP to decrease soreness. Assessment Assessment: Began scapular strengthening today with good tolerance. manual stretching with pt supine today. Used heated thermaprobe to L LS and UT with pt reporting relief after. IFC/MHP atend of session to decrease pain. WIll progress. Activity Tolerance Activity Tolerance: Patient Tolerated treatment well Patient Education Exercise progression and DOMS Pt verbalized/demonstrated good understanding: [x] Yes [] No, pt required further clarification. 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 []Met []Partially met []Not met []Met []Partially met []Not met Minutes Tracking: Time In: 1131 Time Out: 1228 Minutes: 57 Cheri Huang PTA Date: 07/14/2019 documented in this encounter* Tika Phelan - 07/18/2019 4:00 PM EDT [facility] Inpatient/Observation/Outpatient Rehabilitation Date: 07/18/2019 Patient Name: Inez Franco III [] Inpatient Acute/Observation [x] Outpatient : 1990 [] Pt no showed for scheduled appointment [] Pt refused/declined therapy at this time due to: [x] Pt cancelled due to: [] No Reason Given [] Sick/ill [x] Other: Pt was held up at work and is will not make it to appt on time. Confirmed next appt Wednesday at 3:30. Tika Phelan Date: 07/18/2019 documented in this encounter* Lucas Longoria PTA - 07/21/2019 8:45 AM EDT [facility] Outpatient Physical Therapy Daily Note Patient: Inez Franco III : 1990 CSN #: [id number] Referring Practitioner: MED Hollingsworth Referral Date : 01/24/19 Date: 07/21/2019 Diagnosis: Cervical radicular pain, M54.12 Treatment Diagnosis: Chronic cervical spine pain, cervical spine pain with radiculopathy PT Insurance Information: [employer] Total # of Visits Approved: 10 Per Physician Order Total # of Visits to Date: 4 No Show: 2 Canceled Appointment: 0 Pre-Treatment Pain: 2/10 Subjective: Pt states hes doing okay today. Pt states he still get neck pain and tightness but its nt real bad. Pt rates current pain a 2/10. Exercises: Exercise 1: HEP: upper trap stretch 2x30 sec, levator stretch 2x30 sec, supine chin tuck x10 Exercise 2: UBE 4/4 min Exercise 3: Tband retracts/ext x15 BTB Exercise 4: PTB diagonal pulls/HAB x15 ea Exercise 7: Cybex 6 pl chest Exercise 8: 5# 90/90 10x2 Exercise 9: I T Y 15x ea (bench) 2# Manual: Soft Tissue Mobalization: Suboccipital release/manual traction, STM to bilateral upper trapezius Modalities: Moist heat: With IFC to decrease soreness E-stim (parameters): IFC with HP to decrease soreness. Assessment Assessment: Continued to advance scapular stabilization program with appropriate tolerance. Will cont to advance as Pt tolerates. Activity Tolerance Activity Tolerance: Patient Tolerated treatment well Patient Education Patient Education: COnt current HEP. Pt verbalized/demonstrated good understanding: [x] Yes [] No, pt required further clarification. 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 []Met []Partially met [x]Not met []Met []Partially met []Not met Minutes Tracking: Time In: 08 Time Out: 45 Minutes: 58 Timed Code Treatment Minutes: 56 Minutes Lucas Longoria PTA Date: 07/21/2019 documented in this encounter* Mary Anne Eckert - 07/28/2019 4:15 PM EDT [facility] Inpatient/Observation/Outpatient Rehabilitation Date: 07/28/2019 Patient Name: Inez Franco III [] Inpatient Acute/Observation [x] Outpatient : 1990 [x] Pt cancelled due to: [x] Other: Patient is out of town with children attending another appointment, he doesn't think he will be back in time for therapy. This is the last visit scheduled (re-eval) I told the patient I will check with Farhat CASTRO and see if he needs to reschedule or can be discharged Mary Anne Eckert Date: 07/28/2019 documented in this encounter Summary Purpose Family History No Family History Records FoundNo Family History Records FoundNo Family History Records FoundNo Family History Records Found Additional Source Comments Reason for Visit (unrecogniz ed section and content) Reason Comments Concern For COVID-19 pt states onset of chills, body aches yesterday Reason Comments Elbow Pain Right, fell on skate s 2 weeks ago, has continued to have pain Reason Comments Follow-up Ordered Prescriptions (unrec ognized section and content) Prescription Sig Dispensed Refills Start Date End Da te naproxen (NAPROSYN) 500 MG tablet Take 1 tablet by mouth 2 times daily 20 tablet 0 01/20/2021 Care Teams (unrecognized sec tion and content) Drop Board Man Relationship Specialty Start Date End Date Ok Whyte, COMMERCIAL CENSUS TAKER - HYDRAULIC JACK OPERATOR PCP - General Family Nurse Practitioner 01/26/18 Drop Board Man Relationship Specialty Start Date End Date Shaikh Ontiveros MD [address] [place] [address] PCP - General 06/02/21 Drop Board Man Relationship Specialty Start Date End Date Shaikh Ontiveros MD [address] [place] [address] PCP - General 06/02/21 Drop Board Man Relationship Specialty Start Date End Date Shaikh Ontiveros MD [address] [place] [address] PCP - General Internal Medicine 03/18/23 (unrecognized sect ion and content) No Status Records FoundNo Status Records FoundNo Status Records FoundNo Status Records Found INFORMATION SOURCE (unrecogn ized section and content) DATE CREATED AUTHOR 03/24/2021 [facility] DATE CREATED AUTHOR AUTHOR'S ORGANIZ ATION 12/02/2021 [facility] DATE CREATED AUTHOR AUTHOR'S ORGANIZ ATION 03/20/2023 [facility] DATE CREATED AUTHOR AUTHOR'S ORGANIZ ATION 04/22/2023 [facility] FOR RECORDS PERTAINING TO PATIENTS WHO ARE OR HAVE BEEN ENROLLED IN A CHEMICAL DEPENDENCY/SUBSTANCEABUSE PROGRAM, SOME INFORMATION MAY BE OMITTED. This clinical summary was aggregated from multiple sources. Caution should be exercised in using it in the provision of clinical care. This summary normalizes information from multiple sources, and as a consequence, information in this document may materially change the coding, format and clinical context of patient data. In addition, data may be omitted in some cases. CLINICAL DECISIONS SHOULD BE BASED ON THE PRIMARY CLINICAL RECORDS. [employer] provides no warranty or guarantee of the accuracy or completeness of information in this document.
== END 2023-05-20 21:01 | disposition home or self-care (01) ==
LOC: SLEEP 21:00
PROVIDERS: PCP Internal Medicine; Visit Provider Internal Medicine
DX: G47.33 Obstructive sleep apnea (adult) (pediatric) (principal)
CPT/HCPCS: 95811

== ENCOUNTER 2024-01-13 10:58 | Outpatient (OUT) | payer OTHER, SELFPAY ==
--- OUTSIDE RECORDS SUMMARY | 2024-01-13 11:17 | XMS_ITS | CCD ---
Author Organization [facility] Care Team Providers Care Phlebotomy Lab Assistant Name Role Phone Ok Whyte Primary Care Provider SHAIKH ONTIVEROS Consulting Unavailable SHAIKH ONTIVEROS Attending Unavailable SHAIKH ONTIVEROS Admitting Unavailable SHAIKH ONTIVEROS Primary Care Unavailable Weston BECKMAN, Primary Care Provider Colt BADILLO Attending Unavailable Shaikh Ontiveros MD Primary Care Provider Shaikh Ontiveros MD Primary Care Provider SHAIKH ONTIVEROS Referring Unavailable SHAIKH ONTIVEROS Primary Care Unavailable SHAIKH ONTIVEROS Referring Unavailable SHAIKH ONTIVEROS Primary Care Unavailable SHAIKH ONTIVEROS Primary Care Unavailable Mateo Cardozo Attending Unavailab Mateo Johnson Admitting Unavailab Theresa Vazquez DO Unavailable Chhaya Schumacher NP Unavailable Mike Guzman MD Primary Care Provider SHAIKH ONTIVEROS Attending Unavailable SHAIKH ONTIVEROS Attending Unavailable CHHAYA SCHUMACHER Attending Unavailabl e Medications Current Medications Medication Drug Class(es) Dates Sig (Normalized) Sig (Original) amoxicillin 875 mg / clavulanate 125 mg oral tablet (2 sources) Penicillin-class Antibacterial Start: 12-14-2023 End: 12-24-2023 take 1 tablet by mouth in the morning amoxicillin-clavul anate (Augmentin) 875-125 MG tablet Indications: Non-recurrent acute serous otitis media of left ear Take 1 tablet (875 mg) by mouth in the morning and 1 tablet (875 mg) before bedtime. Do all this for 10 days. 20 tablet 12/14/2023 12/24/2023 Active diclofenac sodium 75 mg delayed release oral [...] mouth daily 90 capsule 0 07/27/2019 Active fluticasone propionate 0.05 mg/actuat metered dose nasal spray (5 sources) Corticosteroid Start: 12-14-2023 End: 12-13-2024 take 2 spray(s) nasal route once daily fluticasone (Flonase) 50 MCG/ACT nasal spray Indications: URTI (acute upper respiratory infection) Administer 2 sprays into each nostril Daily Shake gently. Before first use, prime pump. After use, clean tip and replace cap. 16 g 2 12/14/2023 12/13/2024 Active gabapentin 400 mg oral capsule (11 sources) Anti-epileptic Agent Start: 06-21-2019 End: 07-21-2019 take 1 capsule by mouth three times daily gabapentin (NEURONTIN) 400 MG capsule Indications: Cervical radicular pain Take 1 capsule by mouth 3 times daily for 30 days. 90 capsule 0 06/21/2019 Active 200 actuat levalbuterol 0.045 mg/actuat metered dose inhaler (2 sources) beta2-Adrenergic Agonist Start: 01-13-2024 End: 01-12-2025 take 2 puff(s) by inhalation every six hours for wheezing levalbuterol (Xopenex) 45 MCG/ACT inhaler Indications: Shortness of breath Inhale 2 puffs every 6 (six) hours if needed for wheezing or shortness of breath 15 g 11 01/13/2024 01/12/2025 Active meloxicam 15 mg oral tablet (2 [...] Problem Date Documented Date Episodic/Chronic Anxiety disorders (20 sources) Anxiety; Translations: [Anxiety disorder, unspecified] Onset: 10-01-2016 10-01-2016 Chronic Cardiac dysrhythmias (4 sources) Palpitations; Translations: [Palpitations] Onset: 01-13-2024 01-13-2024 Episodic Conditions associated with dizziness or vertigo (6 sources) Dizziness; Translations: [Dizziness and giddiness] Onset: 01-13-2024 01-13-2024 Episodic Headache; including migraine (10 sources) Episodic tension-type headache; Translations: [Episodic tension-type headache, not intractable] Onset: 03-18-2023 03-18-2023 Chronic Immunizations and screening for infectious disease (16 sources) Patient encounter status; Translations: [Encounter for screening for infections with a predominantly sexual mode of transmission] Onset: 03-18-2023 03-18-2023 Episodic Malaise and fatigue (12 sources) Fatigue; Translations: [Chronic fatigue, unspecified] Onset: 03-18-2023 03-18-2023 Chronic Malaise and fatigue (2 sources) Fatigue 01-13-2024 Episodic Mood disorders (8 sources) Bipolar II disorder; Translations: [Bipolar II disorder] Onset: 03-18-2023 03-18-2023 Chronic Nonspecific chest pain (6 sources) Tight chest; Translations: [Other chest pain] Onset: 01-13-2024 01-13-2024 Episodic Other connective tissue disease (1 source) Pain in right hand; Translations: [Pain in right hand] Episodic Other lower respiratory disease (6 sources) Dyspnea; Translations: [Shortness of breath] Onset: 01-13-2024 01-13-2024 Episodic Otitis media and related conditions (7 sources) Acute non-suppurative otitis media - serous; Translations: [Acute serous otitis media, left ear] Onset: 12-14-2023 12-14-2023 Episodic Residual codes; unclassified (12 sources) Chronic pain; Translations: [Chronic left shoulder pain] Onset: 10-01-2016 10-01-2016 Chronic Residual codes; unclassified (16 sources) Obstructive sleep apnea syndrome; Translations: [Obstructive sleep apnea (adult) (pediatric)] Onset: 03-18-2023 03-18-2023 Chronic Residual codes; unclassified (6 sources) Family history of cardiac disorder; Translations: [Family history of ischemic heart disease and other diseases of the circulatory system] Onset: 01-13-2024 01-13-2024 Episodic Screening and history of mental health and substance abuse codes (4 sources) Tobacco smoking behavior - finding; Translations: [Personal history of nicotine dependence] Onset: 01-13-2024 01-13-2024 Episodic Sexually transmitted infections (not HIV or hepatitis) (1 source) Sexually transmitted infectious disease; Translations: [STI (sexually transmitted infection)] Episodic Spondylosis; intervertebral disc disorders; other back problems (1 source) Cervical nerve root pain; Translations: [Cervical radicular pain] Episodic Substance-related disorders (6 sources) History of substance abuse; Translations: [Other psychoactive substance abuse, in remission] Onset: 01-13-2024 01-13-2024 Chronic Superficial injury; contusion (1 source) Contusion of [...] elbow; Translations: [Elbow Pain] Onset: 08-03-2022 Episodic Other upper respiratory infections (8 sources) Acute upper respiratory infection; Translations: [Acute upper respiratory infection, unspecified] Onset: 07-12-2023 07-12-2023 Episodic Residual codes; unclassified (15 sources) High risk sexual behavior; Translations: [High risk heterosexual behavior] Onset: 01-05-2017 01-05-2017 Episodic Residual codes; unclassified (1 source) High risk heterosexual behavior; Translations: [High risk heterosexual behavior] Episodic Results Test Name Value Interpretation Reference Range Facility Chlamydia/GC DNA, Uron 04-21 Chlamydia Probe, Ur Negative Normal NEG [facility] Comment on above: Result Comment: CHLA [...] target. Performed By: #### U CGP #### [id number] [place] [address] Blade Groover: Ethan Amezcua MD Gonorrhea Probe, Ur Negative Normal NEG [facility] Comment on above: Result Comment: NEIS [...] target. Performed By: #### U CGP #### [facility] [email or web address] [address] [place] [id number] Blade Groover: Ethan Amezcua MD HIV Ag/Abon 04-13-2023 HIV Ag/Ab Non-Reactive Normal [facility] Comment on above: Result Comment: No l aboratory evidence of HIV infection. If acute HIV infection is suspected, consider testing for HIV-1 RNA. Performed By: #### T REP, HIVCMB, HSVPR, HBS, AHCV #### [facility] [address] [place] [id number] Blade Groover: Ethan Amezcua MD Hep B Surf Agon 04-13-2023 Hep B Surf Ag Non-Reactive Normal [facility] Comment on above: Performed By: #### T REP, HIVCMB, HSVPR, HBS, AHCV #### [facility] [email or web address] [address] [place] [id number] Blade Groover: Ethan Amezcua MD Hep C Abon 04-13-2023 Hep C Ab Non-Reactive Normal [facility] Comment on above: Result Comment: The hepatitis [...] T REP, HIVCMB, HSVPR, HBS, AHCV #### [facility] [email or web address] [address] [place] [id number] Blade Groover: Ethan Amezcua MD Herpes Profileon 04-13-2023 Herpes Type I, IgG 1.29 High <0.91 [facility] Comment on above: Result Comment: Reference Range: <=0.90 Negative 0.91-1.09 Equivocal >=1.10 Positive Performed By: #### T REP, HIVCMB, HSVPR, HBS, AHCV #### [facility] [email or web address] [address] [place] [id number] Blade Groover: Ethan Amezcua MD Herpes Type I/II,IgM 0.71 Normal <0.91 [facility] Comment on above: Result Comment: Reference [...] T REP, HIVCMB, HSVPR, HBS, AHCV #### [facility] [email or web address] [address] [place] [address] [id number] Blade Groover: Ethan Amezcua MD Herpes Type II, IgG 3.88 High <0.91 [facility] Comment on above: Result Comment: Reference Range: <=0.90 Negative 0.91-1.09 Equivocal >=1.10 Positive Performed By: #### T REP, HIVCMB, HSVPR, HBS, AHCV #### [facility] [email or web address] [address] [place] [address] [id number] Blade Groover: Ethan Amezcua MD T.pallidum Ab Screenon 04-12 T.pallidum Ab Screen Non-Reactive Normal NR [facility] Comment on above: Result Comment: T. pallidum antibodies are not detected. There is no serological evidence of infection with T. pallidum (early primary syphilis cannot be excluded). Retest in 2-4 weeks if syphilis is clinically suspect. Performed By: #### T REP, HIVCMB, HSVPR, HBS, AHCV #### [facility] [email or web address] [address] [place] [address] [phone] Blade Groover: Ethan Amezcua MD No Panel Informationon 08-03 No acute radiographic abnormality. [facility] RIS CONSOLIDATED EXAMINATION: THREE XRAY VIEWS OF THE RIGHT ELBOW; THREE XRAY VIEWS OF THE RIGHT HAND 08/03/2022 2:51 pm COMPARISON: None. HISTORY: ORDERING SYSTEM PROVIDED HISTORY: pain after fall 2 weeks ago TECHNOLOGIST PROVIDED HISTORY: pain after fall 2 weeks ago FINDINGS: Right elbow: No acute fracture dislocation. No joint effusion. Right hand: No acute fracture or dislocation. No appreciable soft tissue swelling. [facility] Matti Stanley MD - 08/03/2022 EXAMINATION: [...] tissue swelling. IMPRESSION: No acute radiographic abnormality. [facility] No Panel InformationOrdered By: Matti Stanley on 08-03-2022 [facility] Work Phone: XR ELBOW RIGHT (MIN 3 [...] Matti Stanley MD 08/03/22 Final result Normal [facility] Radiology Study observation (narrative) [facility] XR HAND RIGHT (MIN 3 VIEWS)o n [...] Matti Stanley MD 08/03/22 Final result Normal [facility] Radiology Study observation (narrative) [facility] Care Home Documentson 11-28-2021 Care Home Documents [id number] Normal [facility] COVID-19, Rapidon 01-20-2021 SARS-CoV-2 (COVID-19) RNA SHEN+probe Ql (Unsp spec) Not detected Not Detected [facility] Comment on above: Rapid NAAT: The specimen [...] management decisions. Fact sheet for Healthcare Providers: https://www.fda.gov/media/273485/download Fact sheet for Patients: https://www.fda.gov/media/030911/download Methodology: Isothermal Nucleic Acid Amplification Specimen Description .NASOPHARYNGEAL SWAB [facility] CBC AUTO DIFFon 10-10-2020 BASO # 0.0 103/ul Normal 0.0-0.1 [facility] Comment on above: Performed By: #### C BC #### [facility] [address] [place] [address] Papa Vandana Basophils/100 WBC (Bld) 0.4 % Normal 0.2-2.0 [facility] Comment on above: Performed By: #### C BC #### [facility] [address] [place] [address] Papa Vandana EO # 0.1 103/ul Normal 0.0-0.7 [facility] Comment on above: Performed By: #### C BC #### [facility] [address] [place] [address] Papa Vandana Eosinophils/100 WBC (Bld) 1.0 % Normal 0.9-7.0 [facility] Comment on above: Performed By: #### C BC #### [facility] [address] [place] [address] Papa Vandana Erythrocyte distribution width (RBC) [Ratio] 12.3 % Normal 11.0-15.0 [facility] Comment on above: Performed By: #### C BC #### [facility] [address] [place] [address] Papa Vandana Hematocrit (Bld) [Volume fraction] 50.6 % Normal 42.0-54.0 [facility] Comment on above: Performed By: #### C BC #### [facility] [address] [place] [address] Papa Vandana Hemoglobin (Bld) [Mass/Vol] 16.8 g/dL Normal 14.0-18.0 [facility] Comment on above: Performed By: #### C BC #### [facility] [address] [place] [address] Papa Vandana IG # 0.01 10e3/ul Normal 0.00-0.03 [facility] Comment on above: Performed By: #### C BC #### [facility] [address] [place] [address] Papa Vandana IG % 0.1 % Normal 0.0-0.5 [facility] Comment on above: Performed By: #### C BC #### [facility] [address] [place] [address] Papa Vandana LYMPH # 1.4 103/ul Normal 1.2-3.8 [facility] Comment on above: Performed By: #### C BC #### [facility] [address] [place] [address] Papa Vandana Lymphocytes/100 WBC (Bld) 17.9 % Critically low 20.5-60.0 [facility] Comment on above: Performed By: #### C BC #### [facility] [address] [place] [address] Papa Vandana MANUAL DIFF REQ NO Normal [facility] Comment on above: Performed By: #### C BC #### [facility] [address] [place], [place] [id number] Papa Ross MCH (RBC) [Entitic mass] 29.6 pg Normal 25.9-34.0 [facility] Comment on above: Performed By: #### C BC #### [facility] [address] [place], [place] [id number] Papa Ross MCHC (RBC) [Mass/Vol] 33.2 g/dL Normal 29.9-35.2 [facility] Comment on above: Performed By: #### C BC #### [facility] [address] [place] [address] Papa Ross MCV (RBC) [Entitic vol] 89.2 fL Normal 80.0-94.0 [facility] Comment on above: Performed By: #### C BC #### [facility] [address] [place] [address] Papa Ross MONO # 0.5 103/ul Normal 0.3-0.8 [facility] Comment on above: Performed By: #### C BC #### [facility] [address] [place] [address] Papa Ross Monocytes/100 WBC (Bld) 6.1 % Normal 1.7-12.0 [facility] Comment on above: Performed By: #### C BC #### [facility] [address] [place] [address] Papa Ross NEUT # 5.8 103/ul Normal 1.4-6.5 [facility] Comment on above: Performed By: #### C BC #### [facility] [address] [place], [place] [id number] Papa Ross Neutrophils/100 WBC (Bld) 74.5 % Normal 43.0-75.0 [facility] Comment on above: Performed By: #### C BC #### [facility] [address] [place] [address] Papa Ross Platelet mean volume (Bld) [Entitic vol] 10.4 fL Normal 9.5-13.5 [facility] Comment on above: Performed By: #### C BC #### [facility] [address] [place] [id number] Papa Vandana PLT 268 103/ul Normal 150-450 [facility] Comment on above: Performed By: #### C BC #### [facility] [address] [place], [place] [id number] Papa Vandana RBC 5.67 106/ul Normal 4.70-6.10 [facility] Comment on above: Performed By: #### C BC #### [facility] [address] [place], [place] [id number] Papa Vandana WBC 7.8 103/ul Normal 4.0-11.0 [facility] Comment on above: Performed By: #### C BC #### [facility] [address] [place] [address] Papa Ross PROF 14(COMP METB)on 021 Albumin [Mass/Vol] 4.4 g/dL Normal 3.5-5.0 [facility] Comment on above: Performed By: #### C MP #### [facility] [address] [place], [place] [id number] Papa Avndana Albumin/Globulin [Mass ratio] 1.5 {ratio} Normal [facility] Comment on above: Performed By: #### C MP #### [facility] [address] [place], [place] [phone] Papa Vandana ALP [Catalytic activity/Vol] 59 U/L Normal 38-126 [facility] Comment on above: Performed By: #### C MP #### [facility] [address] [place], [place] [phone] Papa Vandana ALT [Catalytic activity/Vol] 52 U/L Normal 21-72 [facility] Comment on above: Performed By: #### C MP #### [facility] [address] [place], [place] [id number] Papa Vandana Anion gap [Moles/Vol] 11.9 mmol/L Normal [facility] Comment on above: Performed By: #### C MP #### [facility] [address] [address] Papa Vandana AST [Catalytic activity/Vol] 21 U/L Normal 17-59 [facility] Comment on above: Performed By: #### C MP #### [facility] [address] [phone] Papa Vandana Bilirubin [Mass/Vol] 0.6 mg/dL Normal 0.2-1.3 [facility] Comment on above: Performed By: #### C MP #### [facility] [address] [address] Papa Vandana Calcium [Mass/Vol] 9.2 mg/dL Normal 8.4-10.2 [facility] Comment on above: Performed By: #### C MP #### [facility] [address] [address] Papa Vandana Chloride [Moles/Vol] 103 mmol/L Normal 98-107 [facility] Comment on above: Performed By: #### C MP #### [facility] [address] [address] Papa Vandana CO2 [Moles/Vol] 31.1 mmol/L Critically high 22.0-30.0 [facility] Comment on above: Performed By: #### C MP #### [facility] [address] [address] Papa Vandana Creatinine [Mass/Vol] 1.23 mg/dL Normal 0.66-1.25 [facility] Comment on above: Performed By: #### C MP #### [facility] [address] [id number] Papa Vandana EGFR-AF [place] >60 Normal >=60 [facility] Comment on above: Performed By: #### C MP #### [facility] [address] [phone] Papa Vandana EGFR-NON AF [place]ER >60 Normal >=60 [facility] Comment on above: Performed By: #### C MP #### [facility] [address] [phone] Papa Vandana Globulin (S) [Mass/Vol] 3.0 g/dL Normal [facility] Comment on above: Performed By: #### C MP #### [facility] [address] [place], [place] [address] Papa Vandana Glucose [Mass/Vol] 86 mg/dL Normal 74-106 [facility] Comment on above: Performed By: #### C MP #### [facility] [address] [place], [place] [address] Papa Vandana Potassium [Moles/Vol] 4.0 mmol/L Normal 3.4-5.0 [facility] Comment on above: Performed By: #### C MP #### [facility] [address] [place], [place] [address] Papa Vandana Protein [Mass/Vol] 7.4 g/dL Normal 6.1-8.2 [facility] Comment on above: Performed By: #### C MP #### [facility] [address] [place], [place] [address] Papa Vandana Sodium [Moles/Vol] 142 mmol/L Normal 137-145 [facility] Comment on above: Performed By: #### C MP #### [facility] [address] [place], [place] [address] Papa Vandana Urea nitrogen [Mass/Vol] 18.0 mg/dL Normal 9.0-20.0 [facility] Comment on above: Performed By: #### C MP #### [facility] [address] [place], [place] [address] Papa Vandana Urea nitrogen/Creatinine [Mass ratio] 14.6 mg/mg Normal [facility] Comment on above: Performed By: #### C MP #### [facility] [address] [place], [place] [address] Papa Vandana XR CERVICAL SPINE (2-3 VIEWS )on 06-21-2019 Minimal reversal of the normal cervical lordosis without acute abnormality. [facility], [place] EXAMINATION: 5 XRAY VIEWS OF THE [...] The lung apices are without acute process. [place], [place] Ashutosh, [facility] Incoming Radiant Results From [facility]acs - 06/21/2019 1:13 PM EDT EXAMINATION: 5 [...] the normal cervical lordosis without acute abnormality. [place], [place] HIV Screenon 09-29-2018 HIV Ag/Ab NONREACTIVE NONREACTIVE [place], [place] Comment on above: No laboratory eviden ce of HIV infection. If acute HIV infection is suspected, consider testing for HIV-1 RNA. T. Pallidum Abon 09-29-2018 T. pallidum, IgG NONREACTIVE NONREACTIVE [place], [place] Comment on above: T. pallidum antibodies are not detected. There is no serological evidence of infection with T. pallidum (early primary syphilis cannot be excluded). Retest in 2-4 weeks if syphilis is clinically suspect. Vital Signs Date Time Vital Sign Value Performing Clinician Faci lity 01-13-2024 09:45-0500 Body mass index (BMI) [Ratio] 28.48 kg/m2 Chhaya Schumacher ALUMINUM SIDING APPLICATOR Work Phone: [facility] 01-13-2024 09:45-0500 Body temperature 98.29 [degF] Chhaya Schumacher ALUMINUM SIDING APPLICATOR Work Phone: [facility] 01-13-2024 09:45-0500 Body weight 95.25 kg Chhaya Schumacher ALUMINUM SIDING APPLICATOR Work Phone: [facility] 01-13-2024 09:45-0500 Diastolic blood pressure 62 mm[Hg] Chhaya Schumacher ALUMINUM SIDING APPLICATOR Work Phone: [facility] 01-13-2024 09:45-0500 Heart rate 73 /min Chhaya Schumachre ALUMINUM SIDING APPLICATOR Work Phone: [facility] 01-13-2024 09:45-0500 SaO2% (BldA) [Mass fraction] 97 % Chhaya Schumacher ALUMINUM SIDING APPLICATOR Work Phone: [facility] 01-13-2024 09:45-0500 Systolic blood pressure 110 mm[Hg] Chhaya Schumacher ALUMINUM SIDING APPLICATOR Work Phone: [facility] 12-14-2023 10:22-0500 Body height 182.9 cm Chhaya Schumacher ALUMINUM SIDING APPLICATOR Work Phone: [facility] 12-14-2023 10:22-0500 Body mass index (BMI) [Ratio] 27.42 kg/m2 Chhaya Schumacher ALUMINUM SIDING APPLICATOR Work Phone: [facility] 12-14-2023 10:22-0500 Body temperature 100 [degF] Chhaya Schumacher ALUMINUM SIDING APPLICATOR Work Phone: [facility] 12-14-2023 10:22-0500 Body weight 91.72 kg Chhaya Schumacher ALUMINUM SIDING APPLICATOR Work Phone: [facility] 12-14-2023 10:22-0500 Diastolic blood pressure 68 mm[Hg] Chhaya Schumacher ALUMINUM SIDING APPLICATOR Work Phone: [facility] 12-14-2023 10:22-0500 Heart rate 93 /min Chhaya Schumacher ALUMINUM SIDING APPLICATOR Work Phone: [facility] 12-14-2023 10:22-0500 Respiratory rate 16 /min Chhaya Schumacher ALUMINUM SIDING APPLICATOR Work Phone: [facility] 12-14-2023 10:22-0500 SaO2% (BldA) [Mass fraction] 95 % Chhaya Schumacher ALUMINUM SIDING APPLICATOR Work Phone: [facility] 12-14-2023 10:22-0500 Systolic blood pressure 110 mm[Hg] Chhaya Schumacher ALUMINUM SIDING APPLICATOR Work Phone: [facility] 03-18-2023 15:32-0500 Body height 182.9 cm Shaikh Weston BECKMAN Work Phone: [facility] 03-18-2023 15:32-0500 Body mass index (BMI) [Ratio] 27.26 kg/m2 Shaikh Weston BECKMAN Work Phone: [facility] 03-18-2023 15:32-0500 Body temperature 97.81 [degF] Shaikh Weston BECKMAN Work Phone: [facility] 03-18-2023 15:32-0500 Body weight 91.17 kg Shaikh Weston BECKMAN Work Phone: [facility] 03-18-2023 15:32-0500 Diastolic blood pressure 76 mm[Hg] Shaikh Weston BECKMAN Work Phone: [facility] 03-18-2023 15:32-0500 Heart rate 85 /min Shaikh Weston BECKMAN Work Phone: [facility] 03-18-2023 15:32-0500 SaO2% (BldA) [Mass fraction] 97 % Shaikh Weston BECKMAN Work Phone: [facility] 03-18-2023 15:32-0500 Systolic blood pressure 104 mm[Hg] Shaikh Weston BECKMAN Work Phone: [facility] 08-03-2022 14:38-0400 Diastolic blood pressure 79 mm[Hg] Shaikh Weston BECKMAN Work Phone: [facility] 08-03-2022 14:38-0400 Systolic blood pressure 117 mm[Hg] Shaikh Weston BECKMAN Work Phone: [employer] 08-03-2022 14:37-0400 Body mass index (BMI) [Ratio] 28.48 kg/m2 Shaikh Weston BECKMAN Work Phone: [facility] [employer] 08-03-2022 14:37-0400 Body temperature 98.4 [degF] Shaikh Weston BECKMAN Work Phone: [facility] [employer] 08-03-2022 14:37-0400 Body weight 95.25 kg Shaikh Weston BECKMAN Work Phone: [employer] 08-03-2022 14:37-0400 Heart rate 81 /min Shaikh Weston BECKMAN Work Phone: [facility] [employer] 08-03-2022 14:37-0400 Respiratory rate 16 /min Shaikh Weston BECKMAN Work Phone: [facility] [employer] 08-03-2022 14:37-0400 SaO2% (BldA) [Mass fraction] 97 % Shaikh Weston BECKMAN Work Phone: [facility] [employer] 01-20-2021 10:55-0500 Body mass index (BMI) [Ratio] 28.48 kg/m2 Ehsan Rivas MD Work Phone: [employer] 01-20-2021 10:55-0500 Body temperature 98.49 [degF] Ehsan Rivas MD Work Phone: [employer] 01-20-2021 10:55-0500 Body weight 95.25 kg Ehsan Rivas MD Work Phone: [employer] 01-20-2021 10:55-0500 Diastolic blood pressure 76 mm[Hg] Ehsan Rivas MD Work Phone: [employer] 01-20-2021 10:55-0500 Heart rate 77 /min Ehsan Rivas MD Work Phone: [employer] 01-20-2021 10:55-0500 Respiratory rate 16 /min Ehsan Rivas MD Work Phone: [employer] 01-20-2021 10:55-0500 SaO2% (BldA) [Mass fraction] 99 % Ehsan Rivas MD Work Phone: [employer] 01-20-2021 10:55-0500 Systolic blood pressure 132 mm[Hg] Ehsan Rivas MD Work Phone: [employer] Encounters Encounter Date Encounter Type Care Provider Facility Start: 01-13-2024 End: 01-13-2024 B[employer]Sonogenix[employer] Chhaya Letrick ALUMINUM SIDING APPLICATOR Work Phone: [facility] Start: 01-13-2024 End: 01-13-2024 [employer]amboo [employer] Chhaya Schumacher ALUMINUM SIDING APPLICATOR Work Phone: [facility] Start: 01-13-2024 End: 01-13-2024 Office outpatient visit 15 minutes Chhaya Daveyk ALUMINUM SIDING APPLICATOR Work Phone: [facility] Comment on above: History of substance abuse (CMS/HCC) (Primary Dx); History of cigarette smoking; Family history of heart disease; Dizziness; Chronic fatigue; VAN (obstructive sleep apnea); Shortness of breath; Palpitations; Sensation of chest tightness; Screening for hyperlipidemia Start: 12-14-2023 End: 12-14-2023 [employer]amboo [employer] Chhaya Schumacher ALUMINUM SIDING APPLICATOR Work Phone: [facility] Start: 12-14-2023 End: 12-14-2023 Bamboo [employer] Chhaya Schumacher ALUMINUM SIDING APPLICATOR Work Phone: [facility] Start: 12-14-2023 End: 12-14-2023 Office outpatient visit 10 minutes Chhaya Daveyk ALUMINUM SIDING APPLICATOR Work Phone: [facility] Comment on above: VAN (obstructive sle ep apnea) (Primary Dx); URTI (acute upper respiratory infection); Non-recurrent acute serous otitis media of left ear Start: 12-14-2023 End: 12-14-2023 ambulatory CHHAYA SCHUMACHER Not Available Start: 10-27-2023 ambulatory Mateo Cardozo Levy acility:[facility] Start: 07-12-2023 End: 07-12-2023 ambulatory [facility] Not Available Start: 04-21-2023 End: 04-22-2023 ambulatory [facility] Start: 04-12-2023 End: 04-13-2023 ambulatory [facility] Start: 03-18-2023 End: 03-18-[facility]23 [facility] Start: 03-18-2023 End: 03-18-2023 Office outpatient visit 25 minutes Shaikh Weston BECKMAN Work Phone: [facility] Comment on above: Chronic fatigue (Betsy benjamín Dx); VAN (obstructive sleep apnea); Screening for STD (sexually transmitted disease); Episodic tension-type headache, not intractable Start: 08-03-2022 Emergency department patient visit [facility] Start: 08-03-2022 End: 08-03-2022 Emergency department patient visit Shaikh Weston BECKMAN Work Phone: [facility] ED Comment on above: Contusion of right e lbow, initial encounter (Primary Dx); Right hand pain Start: 10-31-2021 ambulatory Colt BADILLO Facility: [facility] Start: 07-15-2021 End: 07-15-2021 Subsequent hospital visit by physician Drake Covid Screening Schedule [facility] Covid Screening Comment on above: Arrived Start: 01-20-2021 End: 01-20-2021 Emergency department patient visit Ehsan Rivas MD Work Phone: [facility] ED Comment on above: Viral illness (Prima ry Dx) Start: 10-10-2020 End: 10-11-2020 ambulatory [facility] Facility:[facility] Start: 03-20-2020 End: 03-20-2020 Subsequent hospital visit by physician Ok [facility] Comment on above: STI (sexually transm itted infection) Start: 07-28-2019 End: 07-28-2019 Subsequent hospital visit by physician Farhat Gillette [facility] Physical Therapy Start: 07-25-2019 End: 07-25-2019 Subsequent hospital visit by physician Lucas Longoria [facility] Physical Therapy Comment on above: Arrived Start: 07-21-2019 End: 07-21-2019 Subsequent hospital visit by physician Lucas Longoria [facility] Physical Therapy Comment on above: Arrived Start: 07-18-2019 End: 07-18-2019 Subsequent hospital visit by physician Kendrick Iyer [facility] Physical Therapy Start: 07-14-2019 End: 07-14-2019 Subsequent hospital visit by physician Cheri Huang [facility] Physical Therapy Comment on above: Arrived Start: 07-11-2019 End: 07-11-2019 Subsequent hospital visit by physician Kendrick Iyer [facility] Physical Therapy Comment on above: Arrived Start: 07-07-2019 End: 07-07-2019 Subsequent hospital visit by physician Cheri Huang [facility] Physical Therapy Start: 06-28-2019 End: 06-28-2019 Subsequent hospital visit by physician Farhat Gillette [facility] Physical Therapy Comment on above: Arrived Start: 06-21-2019 End: 06-23-2019 Subsequent hospital visit by physician Maxwell [address] Room 4 [facility] Radiology Comment on above: Cervical radicular p ain Start: 09-29-2018 End: 09-29-2018 Subsequent hospital visit by physician Ok Whyte [facility] Laboratory Comment on above: High risk [...] Treatment Date Care Activity Detail Author Start: 03-09-2024 Influenza vaccination Influenza Vacc ine (#1) [facility] Healthcare Comment on above: Postponed from 10/09 (Patient Refused) Start: 03-09-2024 End: 03-09-2024 Patient encounter procedure 03/09/2024 10:00 AM EST Office Visit [facility] [address] [place] [address] Chhaya Schumacher, HEIKE [address] [place] [address] [facility] Start: 01-13-2024 End: 01-12-2025 Cobalamin (Vitamin B12) [Mass/volume] in Serum or Plasma Vitamin B12 Lab Routine Chronic fatigue Palpitations Expected: 01/13/2024 (Approximate), Expires: 01/12/2025 [facility] Healthcare Comment on above: Expected: 01/13/2024 (Approximate), Expires: 01/12/2025 Start: 01-13-2024 End: 01-12-2025 ECG 12 lead ECG 12 lead ECG Routine Palpitations Sensation of chest tightness Expected: 01/13/2024 (Approximate), Expires: 01/12/2025 [facility] Healthcare Comment on above: Expected: 01/13/2024 (Approximate), Expires: 01/12/2025 Start: 01-13-2024 End: 01-12-2026 Echocardiogram 2D complete Echocardiogram 2D complete Echocardiography Routine History of substance abuse ([facility]) Family history of heart disease Dizziness Chronic fatigue VAN (obstructive sleep apnea) Shortness of breath Sensation of chest tightness Expected: 01/13/2024 (Approximate), Expires: 01/12/2026 [facility] Comment on above: Expected: 01/13/2024 (Approximate), Expires: 01/12/2026 Start: 01-13-2024 End: 01-12-2025 Ferritin [Mass/volume] in Serum or Plasma Ferritin Lab Routine Chronic fatigue Palpitations Expected: 01/13/2024 (Approximate), Expires: 01/12/2025 [facility] Comment on above: Expected: 01/13/2024 (Approximate), Expires: 01/12/2025 Start: 01-13-2024 End: 01-12-2025 Iron + transferrin + TIBC Iron + transferrin + TIBC Lab Routine Chronic fatigue Palpitations Expected: 01/13/2024 (Approximate), Expires: 01/12/2025 [facility] Healthcare Comment on above: Expected: 01/13/2024 (Approximate), Expires: 01/12/2025 Start: 01-13-2024 End: 01-12-2025 Lipid 1996 panel - Serum or Plasma Lipid panel Lab Routine History of cigarette smoking Family history of heart disease Screening for hyperlipidemia Expected: 01/13/2024 (Approximate), Expires: 01/12/2025 [facility] Healthcare Comment on above: Expected: 01/13/2024 (Approximate), Expires: 01/12/2025 Start: 01-13-2024 End: 01-12-2025 TSH W/REFLEX TO FT4 TSH W/REFLEX TO FT4 Lab Routine Chronic fatigue Palpitations Expected: 01/13/2024 (Approximate), Expires: 01/12/2025 [facility] Healthcare Comment on above: Expected: 01/13/2024 (Approximate), Expires: 01/12/2025 Start: 01-13-2024 End: 01-12-2025 XR Chest 2 Views XR chest 2 views Imaging Routine Shortness of breath Sensation of chest tightness Expected: 01/13/2024, Expires: 01/12/2025 [facility] Work Phone: Comment on above: Expected: 01/13/2024 , Expires: 01/12/2025 Start: 01-13-2024 End: 01-13-2024 Patient encounter procedure [facility] Comment on above: Arrived Start: 12-14-2023 End: 12-14-2023 Patient encounter procedure 12/14/2023 10:30 AM EST Office Visit [facility] [address] [place] [address] Chhaya Schumacher NP [address] [place] [address] [facility] Comment on above: Arrived Start: 10-10-2023 Influenza vaccination Influenza Vacc ine (#1) [facility] Start: 03-18-2023 End: 03-18-2024 CBC W Auto Differential panel - Blood CBC and differential Lab Routine Chronic fatigue Expected: 03/18/2023 (Approximate), Expires: 03/18/2024 [facility] Comment on above: Expected: 03/18/2023 (Approximate), Expires: 03/18/2024 Start: 03-18-2023 End: 03-18-2024 CHLAMYDIA/GC BY PCR URINE ([facility]) CHLAMYDIA/GC BY PCR URINE ([facility]) Lab Routine Screening for STD (sexually transmitted disease) Expected: 03/18/2023 (Approximate), Expires: 03/18/2024 [facility] Comment on above: Expected: 03/18/2023 (Approximate), Expires: 03/18/2024 Start: 03-18-2023 End: 03-18-2024 Hepatitis B virus surface Ag [Presence] in Serum or Plasma by Immunoassay Hepatitis B surface antigen Lab Routine Screening for STD (sexually transmitted disease) Expected: 03/18/2023 (Approximate), Expires: 03/18/2024 [facility] Healthcare Comment on above: Expected: 03/18/2023 (Approximate), Expires: 03/18/2024 Start: 03-18-2023 End: 03-18-2024 Hepatitis C virus Ab [Presence] in Serum or Plasma by Immunoassay Hepatitis C antibody Lab Routine Screening for STD (sexually transmitted disease) Expected: 03/18/2023 (Approximate), Expires: 03/18/2024 [facility] Healthcare Comment on above: Expected: 03/18/2023 (Approximate), Expires: 03/18/2024 Start: 03-18-2023 End: 03-18-2024 HIV-1/HIV-2 antigen/antibody combination immunoassay HIV 1/2 antibodies, rapid Lab Routine Screening for STD (sexually transmitted disease) Expected: 03/18/2023 (Approximate), Expires: 03/18/2024 [facility] Comment on above: Expected: 03/18/2023 (Approximate), Expires: 03/18/2024 Start: 03-18-2023 End: 03-18-2024 HSV 1/2 AB (IGM),IFA W/RFL TO TITER HSV 1/2 AB (IGM),IFA W/RFL TO TITER Lab Routine Screening for STD (sexually transmitted disease) Expected: 03/18/2023 (Approximate), Expires: 03/18/2024 [facility] Comment on above: Expected: 03/18/2023 (Approximate), Expires: 03/18/2024 Start: 03-18-2023 End: 03-18-2024 HSV 1/2 IGG,TYPE SPECIFIC AB HSV 1/2 IGG,TYPE SPECIFIC AB Lab Routine Screening for STD (sexually transmitted disease) Expected: 03/18/2023 (Approximate), Expires: 03/18/2024 [facility] Comment on above: Expected: 03/18/2023 (Approximate), Expires: 03/18/2024 Start: 03-18-2023 End: 03-18-2024 Reagin Ab [Presence] in Serum by RPR RPR Lab Routine Screening for STD (sexually transmitted disease) Expected: 03/18/2023 (Approximate), Expires: 03/18/2024 [facility] Comment on above: Expected: 03/18/2023 (Approximate), Expires: 03/18/2024 Start: 03-18-2023 End: 03-18-2024 TSH W/REFLEX TO FT4 TSH W/REFLEX TO FT4 Lab Routine Chronic fatigue Expected: 03/18/2023 (Approximate), Expires: 03/18/2024 [facility] Work Phone: Comment on above: Expected: 03/18/2023 (Approximate), Expires: 03/18/2024 Start: 10-09-2022 Influenza vaccination Influenza Vacc ine (#1) [facility] Start: 09-08-2022 Influenza vaccination Flu vacc ine (Season Ended) [facility] Start: 10-09-2021 Influenza vaccination Flu vacc ine (Season Ended) [facility] Start: 10-09-2020 Influenza vaccination Flu vaccine (# 1) [facility] Start: 06-20-2020 DTaP/Tdap/Td vaccine (1 - Tdap) DTaP/Tdap/Td vaccine (1 - Tdap) [facility] [place] [place] Comment on above: Postponed from 11/24 (Patient Refused) Start: 01-29-2020 End: 01-29-2020 Office Visit 01/29/2020 Office Visit Primary Care Ok Whyte APRN - BALLET MASTER/MISTRESS [address] [place] [address] [phone] [facility] Start: 12-03-2019 Influenza vaccination Flu vacc ine (Season Ended) [place] Comment on above: Postponed from 10/09 (Patient Refused) Start: 12-03-2019 Varicella vaccine (1 of 2 - 2-dose childhood series) Varicella vaccine (1 of 2 - 2-dose childhood series) [place] Comment on above: Postponed from 11/24 (Patient Refused) Start: 10-10-2019 Influenza vaccination Flu vaccine (# 1) [facility] Work Phone: Start: 07-28-2019 End: 07-28-2019 Appointment 07/28/2019 Appointment Physical Therapy Farhat Gillette PT [facility] Physical Therapy Start: 07-27-2019 End: 07-27-2019 Office Visit 07/27/2019 Office Visit Primary Care Ok Whyte APRN - BALLET MASTER/MISTRESS [address] [place] [address] [phone] [facility] Start: 07-25-2019 End: 07-25-2019 Appointment 07/25/2019 Appointment Physical Therapy Lucas Longoria [facility] Start: 07-21-2019 End: 07-21-2019 Appointment 07/21/2019 Appointment Physical Therapy Lucas Longoria PTA [facility] Start: 07-21-2019 End: 07-21-2019 Appointment 07/21/2019 Appointment Physical Therapy Lucas Longoria PTA [facility] Start: 07-18-2019 End: 07-18-2019 Appointment 07/18/2019 Appointment Physical Therapy [facility] Start: 07-14-2019 End: 07-14-2019 Appointment [facility] Start: 07-11-2019 End: 07-11-2019 Appointment 07/11/2019 Appointment Physical Therapy Kendrick Iyer [facility] Physical Therapy Start: 07-07-2019 End: 07-07-2019 Appointment 07/07/2019 Appointment Physical Therapy Cheri Huang PTA [facility] Physical Therapy Start: 07-04-2019 End: 07-04-2019 Appointment 07/04/2019 Appointment Physical Therapy Kendrick Iyer [facility] Physical Therapy Start: 01-26-2019 DTaP/Tdap/Td vaccine (1 - Tdap) DTaP/Tdap/Td vaccine (1 - Tdap) [place] Comment on above: Postponed from 11/24 (Patient Refused) Start: 10-13-2018 End: 10-13-2018 Office Visit 10/13/2018 Office Visit Primary Care Ok Whyte, BANK REPRESENTATIVE - BALLET MASTER/MISTRESS [address] [place] [address] [phone] [facility] Start: 10-09-2018 Influenza vaccination Flu vaccine (# 1) [place] Start: 2009 DTaP/Tdap/Td vaccine (1 - Tdap) DTaP/Tdap/Td vaccine (1 - Tdap) [facility] Start: 11-25-2003 Varicella Vaccine (1 of 2 - 13+ 2-dose series) Varicella Vaccine (1 of 2 - 13+ 2-dose series) [place] Start: 2002 COVID-19 Vaccine (1) COVID-19 Vaccin e (1) [facility] Start: 2002 Depression Monitoring Depression Mon itoring [facility] Start: 2002 Depression Screen Depression Screen [facility] Start: 11-25-1995 COVID-19 Vaccine (1) COVID-19 Vaccin e (1) [facility] Start: 11-25-1991 Varicella vaccine (1 of 2 - 2-dose childhood series) Varicella vaccine (1 of 2 - 2-dose childhood series) [facility] Start: 05-26-1991 COVID-19 Vaccine (#1) COVID-19 Vacci ne (#1) [facility] CBC W Auto Different ial panel - Blood CBC and differential Lab Routine Chronic fatigue Shortness of breath Palpitations Ordered: 01/13/2024 [facility] Comment on above: Ordered: 01/13/2024 End: 03-20-2020 Chlamydia/GC DNA, Urine Chlamydia/GC DNA, Urine Microbiology Routine STI (sexually transmitted infection) 1 Occurrences starting 03/20/2020 until 03/20/2020 [employer] Phone: Comment on above: 1 Occurrences starti ng 03/20/2020 until 03/20/2020 Chlamydia/GC DNA, Urine [employer] End: 09-29-2018 Chlamydia/GC DNA, Urine Chlamydia/GC DNA, Urine Microbiology Routine High risk heterosexual behavior 1 Occurrences starting 09/29/2018 until 09/29/2018 [facility] Comment on above: 1 Occurrences starti ng 09/29/2018 until 09/29/2018 Comprehensive metabo lic 2000 panel - Serum or Plasma Comprehensive metabolic panel Lab Routine Chronic fatigue Shortness of breath Palpitations Ordered: 01/13/2024 [facility] Comment on above: Ordered: 01/13/2024 End: 07-15-2021 COVID-19 [facility] [employer] Phone: Comment on above: Once for 1 Occurrenc es starting 07/15/2021 until 07/15/2021 Payers Date Payer Category Payer Medicaid [facility] Y MEDICAID [facility] MEDICAID [id number] 2022-Present [address] [place] [address] [id number] 2022 Medicaid (Managed Care) [id number] 2022 Medicaid [id number] 2019 Unknown [facility] Y HEALTH PLAN [facility] xxxxxxxxxxxx 2019-Present [phone] [place] [address] xxxxxxxxxxxx [id number] 2014 Self-pay 1990 Unknown [id number] 1990 Unknown [id number] 1990 Unknown [id number] 173 1990 Unknown [id number] 173 1990 Unknown [id number] 173 1990 Unknown [id number] 1990 Unknown [id number] 1259 1990 Unknown [id number] 1259 1959 Unknown [id number] 1959 Unknown [id number] Social History Date Type Detail Facility Start: 10-09-2016 End: 06-21-2019 Tobacco smoking status NHIS Former smoker [place] Start: 06-21-2019 End: 01-13-2024 Alcohol intake Current drinker of alcohol (finding) [place] Start: 06-21-2019 History SDOH Financial 5 [place] Start: 06-21-2019 History SDOH Food Worry 1 [place] Start: 06-21-2019 History SDOH Transpo rt Med 2 [place] Start: 09-22-2016 Tobacco Comment quit 2013 [place], [place] Start: 10-19-2016 Alcohol Comment previos weekly , beer & whiskey [facility] [employer] [place], [place] Start: 1990 Sex Assigned At Not on file [place], [place] Exposure to SARS-CoV -2 (event) Unable to assess [facility] [employer] [place] Start: 10-09-2016 End: 03-19-2020 Tobacco use and exposure Former user [employer] Phone: Start: 01-26-2018 End: 07-12-2023 Alcohol intake Yes [facility] [employer] [place] Start: 01-20-2021 End: 07-12-2023 Alcohol intake [employer] Phone: Exposure to SARS-CoV -2 (event) Not sure [facility] History of tobacco use Current smoker [employer] Start: 02-08-2005 History of tobacco use Cigarette Smo ker [facility] [employer] Start: 02-08-2005 End: 01-13-2024 Tobacco smoking status NHIS Smokes tobacco daily [facility] History of tobacco use Passive smoker [facility] Start: 03-18-2023 End: 01-13-2024 Tobacco use and exposure Smokeless tobacco non-user [facility] Clinical Notes 08-03-2022 to 01-13-2024 Chhaya Schumacher NP - 01/13/2024 10:46 AM Sinai Schumacher, HEIKE - 01/13/2024 10:45 AM Aileen Carrera - 01/13/2024 10:00 AM Sinai Schumacher NP - 01/13/2024 10:00 AM EST Note Date & Type Note Facility 01-13-2024 History of Presen t illness Narrative Associated Problem(s): Shortness of breath Reports intermittent shortness of breath, denies Shortness of breath with exertion. Admits feeling like he needs to take a deep breath frequently, especially in colder temperatures as well as frequent intermittent palpitations/Fatigue/Dizziness Used to smoke cigarettes 0.5ppd for 17 years. Zelaya spast history of polysubstance abuse-Is concerned he may have underlying cardiac history due to this. Family history of heart disease, maternal grandfather. States these symptoms have been ongoing for 2-3 years; Has VAN but has not been wearing CPAP. He states last time he wore CPAP continuously he developed several sinus infections. Had sleep study and split testing done study 6 months ago. Advised pt to begin wearing CPAP routinely. As I believe several of huis underlying symptoms may be related to untreated VAN. Prescribed Levalbuterol to be used PRN for wheezing/shortness of breath. Pt may have underlying Exercise-induced asthma. Ordred CXR, EKG, and Echo, as well as wellness testing to rule out any further disease processes. Pt will follow-up in office in 6-8 weeks. Associated Problem(s): VAN (obstructive sleep apnea) Has VAN but has not been wearing CPAP. He states last time he wore CPAP continuously he developed several sinus infections. Had sleep study and split testing done study 6 months ago. Advised pt to begin wearing CPAP routinely. As I believe several of huis underlying symptoms may be related to untreated VAN. Ordred CXR, EKG, and Echo, as well as wellness testing to rule out any further disease processes. Pt will follow-up in office in 6-8 weeks. Thinks he may be overdoing at the gym but does not know Images from the original note were not included. Subjective Patient ID: Petr Franco III is a 33 y.o. male who presents for Shortness of Breath and Chest Pain. HPI Reports pinching feeling in the center of his chest intermittently. States he has been doing extensive workouts in the gym, 2-3 hours per day 5 days per week. Is unsure if he has overused muscles in chest but does not believe this to be the case. Reports intermittent shortness of breath, denies Shortness of breath with exertion. Admits feeling like he needs to take a deep breath frequently, especially in colder temperatures. Admits frequent intermittent palpitations Fatigue Dizziness States these symptoms have been ongoing for 2-3 years, but each time he has brought it up, it has been dismissed for having anxiety. Used to smoke cigarettes 0.5ppd for 17 years Had past history of polysubstance abuse. Is concerned he may have underlying cardiac history due to this. Family history of heart disease Denies: Wheezing Syncope Swelling in extremities Has VAN but has not been wearing CPAP. He states last time he wore CPAP continuously he developed several sinus infections. Had sleep study and split testing done study 6 months ago. Review of Systems Constitutional: Positive for fatigue. Negative for activity change, appetite change, chills, diaphoresis, fever and unexpected weight change. HENT: Negative for congestion, ear pain, rhinorrhea, sinus pressure, sinus pain, sneezing, sore throat, trouble swallowing and voice change. Eyes: Negative for visual disturbance. Respiratory: Positive for shortness of breath. Negative for cough, chest tightness and wheezing. Cardiovascular: Positive for chest pain and palpitations. Negative for leg swelling. Gastrointestinal: Negative for abdominal distention, abdominal pain, blood in stool, constipation, diarrhea and vomiting. Genitourinary: Negative for decreased urine volume, dysuria, flank pain, frequency, hematuria and urgency. Musculoskeletal: Negative for arthralgias, gait problem, joint swelling and myalgias. Skin: Negative for rash. Neurological: Positive for dizziness. Negative for tremors, syncope, weakness, light-headedness and headaches. Psychiatric/Behavioral: Negative for decreased concentration and suicidal ideas. The patient is nervous/anxious. Hematological: Does not bruise/bleed easily. Endocrine: Negative for cold intolerance, heat intolerance, polydipsia, polyphagia and polyuria. Objective Physical Exam Vitals reviewed. Constitutional: Appearance: Normal appearance. HENT: Head: Normocephalic and atraumatic. Right Ear: Tympanic membrane normal. Left Ear: Tympanic membrane normal. Nose: Nose normal. Mouth/Throat: Mouth: Mucous membranes are moist. Pharynx: Oropharynx is clear. Eyes: Pupils: Pupils are equal, round, and reactive to light. Cardiovascular: Rate and Rhythm: Normal rate and regular rhythm. Pulses: Normal pulses. Heart sounds: Normal heart sounds. Pulmonary: Effort: Pulmonary effort is normal. Breath sounds: Normal breath sounds. Abdominal: General: Abdomen is flat. Bowel sounds are normal. Palpations: Abdomen is soft. Musculoskeletal: General: Normal range of motion. Cervical back: Normal range of motion. Skin: General: Skin is warm and dry. Capillary Refill: Capillary refill takes less than 2 seconds. Neurological: General: No focal deficit present. Mental Status: He is alert and oriented to person, place, and time. Psychiatric: Mood and Affect: Mood normal. Behavior: Behavior normal. Assessment/Plan Problem List Items Addressed This Visit VAN (obstructive sleep apnea) Has VAN but has not been wearing CPAP. He states last time he wore CPAP continuously he developed several sinus infections. Had sleep study and split testing done study 6 months ago. Advised pt to begin wearing CPAP routinely. As I believe several of huis underlying symptoms may be related to untreated VAN. Ordred CXR, EKG, and Echo, as well as wellness testing to rule out any further disease processes. Pt will follow-up in office in 6-8 weeks. Relevant Orders Echocardiogram 2D complete Chronic fatigue Relevant Orders CBC and differential Comprehensive metabolic panel Vitamin B12 Ferritin Iron + transferrin + TIBC TSH W/REFLEX TO FT4 Echocardiogram 2D complete Shortness of breath Reports intermittent shortness of breath, denies Shortness of breath with exertion. Admits feeling like he needs to take a deep breath frequently, especially in colder temperatures as well as frequent intermittent palpitations/Fatigue/Dizziness Used to smoke cigarettes 0.5ppd for 17 years. Zelaya celena history of polysubstance abuse-Is concerned he may have underlying cardiac history due to this. Family history of heart disease, maternal grandfather. States these symptoms have been ongoing for 2-3 years; Has VAN but has not been wearing CPAP. He states last time he wore CPAP continuously he developed several sinus infections. Had sleep study and split testing done study 6 months ago. Advised pt to begin wearing CPAP routinely. As I believe several of huis underlying symptoms may be related to untreated VAN. Prescribed Levalbuterol to be used PRN for wheezing/shortness of breath. Pt may have underlying Exercise-induced asthma. Ordred CXR, EKG, and Echo, as well as wellness testing to rule out any further disease processes. Pt will follow-up in office in 6-8 weeks. Relevant Medications levalbuterol (Xopenex) 45 MCG/ACT inhaler Other Relevant Orders XR chest 2 views CBC and differential Comprehensive metabolic panel Echocardiogram 2D complete Sensation of chest tightness Relevant Orders XR chest 2 views ECG 12 lead Echocardiogram 2D complete Dizziness Relevant Orders Echocardiogram 2D complete History of cigarette smoking Relevant Orders Lipid panel History of substance abuse (CMS/HCC) - Primary Relevant Orders Echocardiogram 2D complete Family history of heart disease Relevant Orders Lipid panel Echocardiogram 2D complete Palpitations Relevant Orders CBC and differential Comprehensive metabolic panel Vitamin B12 Ferritin Iron + transferrin + TIBC TSH W/REFLEX TO FT4 ECG 12 lead Screening for hyperlipidemia Relevant Orders Lipid panel documented in this encounter [facility] 01-13-2024 Instructions Chhaya Schumacher NP - 01/13/2024 10:00 AM EST FASTING labs ordered. Nothing to eat or drink for 12 hours prior to blood draw. Water and black coffee ok. Start wearing CPAP NIGHTLY!!!! Have Chest Xray completed. Have EKG completed Have Echocardiogram Completed Use Levalbuterol as needed for wheezing/shortness of breath If you are using this inhaler more frequently than 3 times per week, please notify my office. WORSENING SYMPTOMS, CHEST PAIN, OR SHORTNESS OF BREATH, GO TO THE NEAREST EMERGENCY DEPARTMENT. documented in this encounter [facility] 12-14-2023 History of Presen t illness Narrative Associated Problem(s): Non-recurrent acute serous otitis media of left ear Erythematous and bulging on examination. Augmentin X10 days. Advised pt to return to office if symptoms worsen or do not improve in 2 weeks. Associated Problem(s): VAN (obstructive sleep apnea) Is wearing CPAP daily; Had stopped using for roughly two months; Encouraged pt to use daily and CPAP compliance. Follows with Dr. Bloom Neurology (for CPAP) Associated Problem(s): URTI (acute upper respiratory infection) Sinus congestion X1 week Progressed to chest congestion the past few days. Cough- occasional, productive; Green Phlegm. Feverish Body aches. Ear congestion Images from the original note were not included. Subjective Patient ID: Petr Franco is a 33 y.o. male who presents for No chief complaint on file.. HPI Specialists: Dr. Bloom Neurology (for CPAP) VAN: Is wearing CPAP daily; Had stopped using for roughly two months; Encouraged pt to use daily and CPAP compliance. URTI: Sinus congestion X1 week Progressed to chest congestion the past few days. Cough- occasional, productive; Green Phlegm. Feverish Body aches. Ear congestion Denies: Shortness of breath Chest pain Sore throat Recently quit smoking. Review of Systems Constitutional: Positive for fatigue and fever. Negative for activity change, appetite change, chills, diaphoresis and unexpected weight change. HENT: Positive for congestion, ear pain and sinus pressure. Negative for rhinorrhea, sinus pain, sneezing, sore throat, trouble swallowing and voice change. Eyes: Negative for visual disturbance. Respiratory: Positive for cough. Negative for chest tightness, shortness of breath and wheezing. Cardiovascular: Negative for chest pain, palpitations and leg swelling. Gastrointestinal: Negative for abdominal distention, abdominal pain, blood in stool, constipation, diarrhea and vomiting. Musculoskeletal: Positive for myalgias. Negative for arthralgias, gait problem and joint swelling. Skin: Negative for rash. Neurological: Negative for dizziness, tremors, syncope, weakness, light-headedness and headaches. Hematological: Does not bruise/bleed easily. Objective Physical Exam Vitals reviewed. Constitutional: Appearance: Normal appearance. HENT: Head: Normocephalic and atraumatic. Right Ear: Tympanic membrane normal. Left Ear: Tympanic membrane is erythematous and bulging. Nose: Nose normal. Mouth/Throat: Mouth: Mucous membranes are moist. Pharynx: Oropharynx is clear. Eyes: Pupils: Pupils are equal, round, and reactive to light. Cardiovascular: Rate and Rhythm: Normal rate and regular rhythm. Pulses: Normal pulses. Heart sounds: Normal heart sounds. Pulmonary: Effort: Pulmonary effort is normal. Breath sounds: Normal breath sounds. Abdominal: General: Abdomen is flat. Bowel sounds are normal. Palpations: Abdomen is soft. Musculoskeletal: General: Normal range of motion. Cervical back: Normal range of motion. Skin: General: Skin is warm and dry. Capillary Refill: Capillary refill takes less than 2 seconds. Neurological: General: No focal deficit present. Mental Status: He is alert and oriented to person, place, and time. Psychiatric: Mood and Affect: Mood normal. Behavior: Behavior normal. Assessment/Plan Problem List Items Addressed This Visit VAN (obstructive sleep apnea) - Primary Is wearing CPAP daily; Had stopped using for roughly two months; Encouraged pt to use daily and CPAP compliance. Follows with Dr. Parks- Neurology (for CPAP) URTI (acute upper respiratory infection) Sinus congestion X1 week Progressed to chest congestion the past few days. Cough- occasional, productive; Green Phlegm. Feverish Body aches. Ear congestion Relevant Medications fluticasone (Flonase) 50 MCG/ACT nasal spray Non-recurrent acute serous otitis media of left ear Erythematous and bulging on examination. Augmentin X10 days. Advised pt to return to office if symptoms worsen or do not improve in 2 weeks. Relevant Medications amoxicillin-clavulanate (Augmentin) 875-125 MG tablet documented in this encounter [facility] 12-14-2023 Instructions Chhaya Schumacher NP - 12/14/2023 10:30 AM EST Start and finish antibiotic as directed. If you are not feeling better after 2 weeks call office. Continue to rest, drink plenty of fluids, and eat a well-balance diet. Resume normal activity. AVOID anything strenuous until you are feeling better. Treatment: Nasal saline spray 2-3 times/day Cold and sinus medication - Karey or zyrtec allergy medication once daily. Flonase nasal spray 1-2 squirts in each nostril at night. Tylenol for fever and body aches. Vitamins: Vitamin C 1,000mg per day. Vitamin D3 2,000 international unit(s) per day.Zinc 25mg per day. WORSENING SYMPTOMS, CHEST PAIN, OR SHORTNESS OF BREATH, GO TO THE NEAREST EMERGENCY DEPARTMENT. documented in this encounter [facility] 03-18-2023 History of Presen t illness Narrative Associated Problem(s): Episodic tension-type headache, not intractable Reports mild left sided ZELAYA behind left ear. Lasts for about 30-45 min, mild, usually develops during day time. Happens 2-3/week and usually resolves on its own or with OTC meds. No associated symptoms. On exam - clear fluid seen behind TM on left side. No mastoid tenderness. Likely tension type ZELAYA or referred pain from ear. Monitor for [...] the patient. Check TSH Subjective Patient ID: Petr Franco is a 32 y.o. male who presents for Follow-up. Patient here presents for regular follow up. He reports fatigue, excessive daytime sleepiness, and seems like he has underlying VAN. He also reports Headache, intermittent, resolves within 45 minutes. No neurological symptoms associated with ZELAYA. No current outpatient medications on file prior [...] headache, not intractable Reports mild left sided ZELAYA behind left ear. Lasts for about 30-45 min, mild, usually develops during day time. Happens 2-3/week and usually resolves on its own or with OTC meds. No associated symptoms. On exam - clear fluid seen behind TM on left side. No mastoid tenderness. Likely tension type ZELAYA or referred pain from ear. Monitor for [...] fail to improve. documented in this encounter [facility] 08-03-2022 Hospital Discharg e instructions [place] PA-C - 08/03/2022 4:33 PM EDT Follow-up with orthopedic doctor 7 to 10 days for reevaluation. Take Tylenol or Motrin as directed for discomfort. Promptly return to emergency department for new, changing or worsening of symptoms or other concerns. The following attachments cannot be sent through Care Everywhere.Contusion ([place]auan)documented in this encounter [facility] [employer] Evaluation note Diagnosis Viral illness- Primary Unspecified viral infection, in conditions classified elsewhere and of unspecified site documented in this encounter [facility]: evaluation note* Diagnosis Contusion of right elbow, initial encounter- Primary Right hand pain Pain in limb [facility] [employer] [facility] Diagnosis Chronic fatigue- Primary Other malaise and fatigue VAN (obstructive sleep apnea) Obstructive sleep apnea (adult) (pediatric) Screening for STD (sexually transmitted disease) Episodic tension-type headache, not intractable documented in this encounter [facility]* Diagnosis Chronic fatigue- Primary Other malaise and fatigue VAN (obstructive sleep apnea) Obstructive sleep apnea (adult) (pediatric) Screening for STD (sexually transmitted disease) Episodic tension-type headache, not intractable VAN (obstructive sleep apnea)- Primary Obstructive sleep apnea (adult) (pediatric) URTI (acute upper respiratory infection) Acute upper respiratory infections of unspecified site Non-recurrent acute serous otitis media of left ear documented in this encounter [facility] HealthcareEvaluation note* Diagnosis Chronic fatigue- Primary Other malaise and fatigue VAN (obstructive sleep apnea) Obstructive sleep apnea (adult) (pediatric) Screening for STD (sexually transmitted disease) Episodic tension-type headache, not intractable VAN (obstructive sleep apnea)- Primary Obstructive sleep apnea (adult) (pediatric) URTI (acute upper respiratory infection) Acute upper respiratory infections of unspecified site Non-recurrent acute serous otitis media of left ear History of substance abuse (CMS/[facility])- Primary Other, mixed, or unspecified nondependent drug abuse, unspecified History of cigarette smoking Family history of heart disease Dizziness Dizziness and giddiness Chronic fatigue Other malaise and fatigue VAN (obstructive sleep apnea) Obstructive sleep apnea (adult) (pediatric) Shortness of breath Palpitations Sensation of chest tightness Screening for hyperlipidemia Screening for lipoid disorders documented in this encounter [facility] Healthcare[facility]ospital Discharge instructions* Attachments The following attachments cannot be sent through Care Everywhere. 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 Pt stated he will be at his next appt but had to have the time moved up d/t going back to work. Cheri Huang, WINDOW SHADE RING SEWER Date: 07/07/2019 documented in this encounter* Kendrick Iyer - 07/11/2019 1:00 PM EDT [facility] Outpatient Physical Therapy Daily Note Patient: Petr Franco III : 1990 CSN #: [id number] Referring Practitioner: MED Hollingsworth Referral Date : 01/24/19 Date: 07/11/2019 Diagnosis: Cervical radicular pain, M54.12 Treatment Diagnosis: Chronic cervical spine pain, cervical spine pain with radiculopathy PT Insurance Information: [employer] Total # of Visits Approved: 10 Per [...] []Not met []Met []Partially met []Not met Skilled Nursing Goals - Time Frame for snf goals : 5 weeks 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 []Met []Partially met []Not met []Met []Partially met []Not met Minutes Tracking: Time In: 1131 Time Out: 1228 Minutes: 57 Cheri Huang PTA Date: 07/14/2019 documented in this encounter* Tika Phelan - 07/18/2019 4:00 PM EDT [facility] Inpatient/Observation/Outpatient Rehabilitation Date: 07/18/2019 Patient Name: Petr Franco III [] Inpatient Acute/Observation [x] Outpatient [...] Longoria PTA - 07/21/2019 8:45 AM EDT [facility] Outpatient Physical Therapy Daily Note Patient: Petr Franco III : 1990 CSN #: [id number] Referring Practitioner: MED Hollingsworth Referral Date : 01/24/19 Date: 07/21/2019 Diagnosis: Cervical radicular pain, M54.12 Treatment Diagnosis: Chronic cervical spine pain, cervical spine pain with radiculopathy PT Insurance Information: [place] Total # of Visits Approved: 10 Per [...] []Not met []Met []Partially met []Not met 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 []Met []Partially met [x]Not met []Met []Partially met []Not met Minutes Tracking: Time In: 846 Time Out: 944 Minutes: 58 Timed Code Treatment Minutes: 56 Minutes Lucas Longoria PTA Date: 07/21/2019 documented in this encounter* Mary Anne Eckert - 07/28/2019 4:15 PM EDT [facility] Inpatient/Observation/Outpatient Rehabilitation Date: 07/28/2019 Patient Name: Petr Franco III [] Inpatient Acute/Observation [x] Outpatient : 1990 [x] Pt cancelled due to: [x] Other: Patient is out of town with children attending another appointment, he doesn't think he will be back in time for therapy. This is the last visit scheduled (re-eval) I told the patient I will check with Farhat PT and see if he needs to reschedule [...] continued to have pain Reason Comments Follow-up Reason Comments Shortness of Breath Chest Pain Ordered Prescriptions (unrec ognized section and content) Prescription Sig Dispensed Refills Start Date End Da te naproxen (NAPROSYN) 500 MG tablet Take 1 tablet by mouth 2 times daily 20 tablet 0 01/20/2021 Care Teams (unrecognized sec tion and content) Phlebotomy Lab Assistant Relationship Specialty Start Date End Date Ok Whyte APRN - BALLET MASTER/MISTRESS PCP - General Family Nurse Practitioner 01/26/18 Phlebotomy Lab Assistant Relationship Specialty Start Date End Date Shaikh Ontiveros MD [address] [place] [address] PCP - General 06/02/21 Phlebotomy Lab Assistant Relationship Specialty Start Date End Date Shaikh Ontiveros MD [address] [place] [address] PCP - General 06/02/21 Phlebotomy Lab Assistant Relationship Specialty Start Date End Date Shaikh Ontiveros MD [address] [place] [phone] PCP - General Internal Medicine 03/18/23 Phlebotomy Lab Assistant Relationship Specialty Start Date End Date Mike Guzman MD [address] [place] [phone] PCP - General Family Medicine 12/13/23 Theresa Parks DO [address] [place] [address] Referring Physician Neurology 04/12/23 Chhaya Schumacher NP [address] [place] [address] Nurse Practitioner Family Medicine 11/30/23 Phlebotomy Lab Assistant Relationship Specialty Start Date End Date Mike Guzman MD [address] [place] [phone] PCP - General Family Medicine 12/13/23 Theresa Parks DO [address] [place] [address] Referring Physician Neurology 04/12/23 Chhaya Schumacher NP [address] [place] [address] Nurse Practitioner Family Medicine 11/30/23 Phlebotomy Lab Assistant Relationship Specialty Start Date End Date Mike Guzman MD [address] [place] [id number] PCP - General Family Medicine 12/13/23 Theresa Parks DO [address] [place] [address] Referring Physician Neurology 04/12/23 Chhaya Schumacher NP [address] [place] [address] Nurse Practitioner Family Medicine 11/30/23 Phlebotomy Lab Assistant Relationship Specialty Start Date End Date Mike Guzman MD [address] [place] [phone] PCP - General Family Medicine 12/13/23 Theresa Parks DO [address] [place] [address] Referring Physician Neurology 04/12/23 Chhaya Schumacher NP [address] [place] [address] Nurse Practitioner Family Medicine 11/30/23 (unrecognized sect ion and content) No Status Records FoundNo Status Records FoundNo Status Records FoundNo Status Records FoundNo Status Records Found INFORMATION SOURCE (unrecogn ized section and content) DATE CREATED AUTHOR 03/24/2021 [facility] DATE CREATED AUTHOR AUTHOR'S ORGANIZ ATION 12/02/2021 [facility] DATE CREATED AUTHOR AUTHOR'S ORGANIZ ATION 04/22/2023 [facility] DATE CREATED AUTHOR AUTHOR'S ORGANIZ ATION 12/03/2023 [facility] DATE CREATED AUTHOR AUTHOR'S ORGANIZ ATION 12/15/2023 [facility] dicmt Specialists EPIC FOR RECORDS PERTAINING TO PATIENTS WHO ARE [...] BE BASED ON THE PRIMARY CLINICAL RECORDS. [facility] [employer] [facility] provides no warranty or guarantee of the accuracy or completeness of information in this document.
--- NOTE | 2024-01-13 11:20 | XR_ITS ---
The [address] [address] Patient Name: INEZ PURCELL MRN: [id number] date: 1990 Sex: M Assigned Patient Location: LAB Current Patient Location: LAB Accession/Order Number: [id number] Exam Date: 01/13/2024 11:30 Report Date: 01/13/2024 15:03 At the request of: ALANNA SWIFT Procedure: XR chest 2V PROCEDURE: XR chest 2V DATE: 01/13/2024 11:30 AM EST COMPARISONS: None. CLINICAL INDICATION: 33 years Male Shortness Of Breath, Chest Tightness FINDINGS: The cardiomediastinal silhouette and pulmonary vasculature are within normal limits. The lungs are clear. There is no evidence of pleural effusion or pneumothorax. XR/XR chest 2V IMPRESSION: Chest radiograph is within normal limits. Electronically authenticated by: TOM TURNER Date: 01/13/2024 15:03
[2024-01-13 11:23] LABS: Basophils Percent Auto 0.8 % (0.2-2.0); Eosinophils Absolute Auto 0.1 10^3/uL (0.0-0.7); Hematocrit 48.2 % (42.0-54.0); Hemoglobin 16.4 g/dL (14.0-18.0); Lymphocytes Absolute Auto 1.1 10^3/uL (1.2-3.8); Lymphocytes Percent Auto 27.1 % (20.5-60.0); Mean Corpuscular Hemoglobin 30.1 pg (25.9-34.0); Mean Corpuscular Volume 88.6 fL (80.0-94.0); Mean Platelet Volume 9.2 fL (9.5-13.5); Monocytes Absolute Auto 0.3 10^3/uL (0.3-0.8); Monocytes Percent Auto 7.8 % (1.7-12.0); Neutrophils Absolute Auto 2.5 10^3/uL (1.4-6.5); Neutrophils Percent Auto 62.3 % (43.0-75.0); Platelet Count 215 10^3/uL (150-450); Red Blood Count 5.44 10^6/uL (4.70-6.10); Red Cell Distribution Width 13.2 % (11.0-15.0)
[2024-01-13 12:24] LABS: Percent Iron Saturation 31.1 %
[2024-01-13 12:37] LABS: Anion Gap 12.9; Carbon Dioxide 27.6 mmol/L (21.0-32.0); Chloride 106 mmol/L (98-107); Glucose 102 mg/dL (74-106); Potassium 4.5 mmol/L (3.5-5.1); Sodium 142 mmol/L (136-145)
[2024-01-13 12:38] LABS: Alanine Aminotransferase 57 U/L (16-63); Aspartate Amino Transferase 38 U/L (15-37); BUN Creatinine Ratio 15.6; Bilirubin Total 0.5 mg/dL (0.2-1.0); Estimated GFR (African America >60 (>=60 mL/min/1.73m^2); Estimated GFR (Non-African Ame >60 (>=60 mL/min/1.73m^2)
[2024-01-13 12:39] LABS: Albumin Globulin Ratio 1.3; Albumin Level 3.7 g/dL (3.4-5.0); Alkaline Phosphatase 74 U/L (46-116); Globulin 2.9 g/dL; Total Protein 6.6 g/dL (6.4-8.2)
[2024-01-13 12:40] LABS: Cholesterol 188 mg/dL (<=200); Triglycerides 32 mg/dL (<=150); VLDL CHOLESTEROL 6.4 mg/dL
[2024-01-13 12:41] LABS: HDL Cholesterol 63 mg/dL (40-60); TSH W/ REFLEX FT4 1.288 uIU/mL (0.358-3.740)
[2024-01-14 05:08] LABS: Transferrin 257 mg/dL (177-329)
[2024-01-14 07:10] LABS: Vitamin B12 601 pg/mL (232-1245)
== END 2024-01-13 10:59 | disposition home or self-care (01) ==
LOC: LAB 11:01
DX: R06.02 Shortness of breath (principal); R07.89 Other chest pain
CPT/HCPCS: 36415; 71046; 80053; 80061; 82607; 82728; 83540; 83550; 84443; 84466; 85025

== ENCOUNTER 2024-02-21 15:40 | Emergency (ER) | payer OTHER, SELFPAY ==
[2024-02-21 15:52] VITALS: BP 142/80; PULSE 106; TEMP 36.9; O2SAT 99; BMI 28.8
--- NOTE | 2024-02-21 16:02 | ECG_ITS ---
The 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
[2024-02-21 17:20] VITALS: BP 142/79; PULSE 88; O2SAT 100
--- NOTE | 2024-02-21 17:21 | ED.GENADUL1 ---
HPI HPI - General Adult General Chief complaint: Anxiety Stated complaint: Heart Fast Time Seen by Provider: 02/21/24 17:21 Source: patient Mode of arrival: walk-in History of Present Illness HPI narrative: 33 year old male presents to the ED for palpitations, SOB, dizziness. Sx have been intermittent for some time, worse today. States his BP elevates with the episodes and he develops palpitations. Reports an unremarkable cardiac echo 2 weeks ago in [place], [place]. Denies fever, chills, [place], vision changes. Denies cough, congestion, N/V/D. Denies recent travel or surgery. Reports feeling anxious. Related Data Previous Rx's ?Medication ?Instructions ?Recorded hydroxyzine HCl 25 mg tablet 25 mg PO Q8H PRN anxiety #12 tabs 02/21/24 Allergies Allergy/AdvReac Type Severity Reaction Status Date / Time No Known Drug Allergies Allergy Verified 02/21/24 15:52 Opioid HPI Opioid Management Most Recent Opioid Data: No Data to Display Review of Systems ROS Constitutional Denies: fever or chills Ears, nose, mouth, and throat Denies: neck pain Cardiovascular Reports: palpitations and lightheadedness; Denies: chest pain Respiratory Reports: shortness of breath; Denies: cough Gastrointestinal Denies: abdominal pain, nausea, vomiting or diarrhea Musculoskeletal Denies: back pain or neck pain Integumentary/Breast Denies: rash Neurological Reports: dizziness; Denies: headache, numbness in extremities or weakness in extremities Psychiatric Reports: anxiety; Denies: suicidal ideation PFSH PFSH Social History Little interest or pleasure in doing things: not at all Feeling down, depressed, or hopeless: not at all Exam Constitutional Vital Signs, click to edit/add: Last Vital Signs Temp 98.5 F 02/21/24 15:52 Pulse 88 02/21/24 17:20 Resp 18 02/21/24 17:20 BP 142/79 H 02/21/24 17:20 Pulse Ox 100 02/21/24 17:20 O2 Del Method Room Air 02/21/24 15:52 Common normals: no apparent distress and oriented x3 General appearance: cooperative [facility] Common normals: normocephalic Nose: external nose normal Mouth: oral and palatal mucosa normal and lip normal Eye Common normals: PERRL, EOMs intact bilaterally, conjunctivae normal and no scleral icterus Neck & C-Spine Common normals: supple Chest Chest: symmetrical chest wall rise Respiratory Common normals: normal respiratory effort and clear to auscultation bilaterally Effort & inspection: able to speak in complete sentences and symmetric chest movement Cardio Common normals: regular rate and regular rhythm Neuro Common normals: oriented x3, CN's II-XII intact bilaterally and moves all extremities Sensorium/orientation: awake and alert Speech: speech normal Gait (neuro): normal gait Psych Common normals: cooperative and speech normal Course Vital Signs Vital signs: Vital Signs Temperature 98.5 F 02/21/24 15:52 Pulse Rate 106 H 02/21/24 15:52 Respiratory Rate 16 02/21/24 15:52 Blood Pressure 142/80 H 02/21/24 15:52 Pulse Oximetry 99 02/21/24 15:52 Oxygen Delivery Method Room Air 02/21/24 15:52 Temperature 98.5 F 02/21/24 15:52 Pulse Rate 88 02/21/24 17:20 Respiratory Rate 18 02/21/24 17:20 Blood Pressure 142/79 H 02/21/24 17:20 Pulse Oximetry 100 02/21/24 17:20 Oxygen Delivery Method Room Air 02/21/24 15:52 Medical Decision Making MDM Narrative Medical decision making narrative: BUN was 19, creatinine 1.29; on 01/13/24 BUN was 17, creatinine was 1.09. Imaging showed no acute findings. Findings were discussed with the patient. He was encouraged to increase his oral hydration the next few days. He requested something for anxiety. A prescription was provided for Atarax; he was given a dose here in the ED. He was encouraged to follow up with his pcp for a recheck, further evaluation and treatment. Medical Records Medical records reviewed: Yes I reviewed the patient's medical records Medical records narrative: Lab Data Lab results reviewed: Yes I reviewed the patient's lab results Labs: Lab Results 02/21/24 Range/Units 17:50 WBC 9.4 (4.0-11.0) 10^3/uL RBC 5.49 (4.70-6.10) 10^6/uL Hgb 16.1 (14.0-18.0) g/dL Hct 47.9 (42.0-54.0) % MCV 87.2 (80.0-94.0) fL MCH 29.3 (25.9-34.0) pg MCHC 33.6 (29.9-35.2) g/dL RDW 12.7 (11.0-15.0) % Plt Count 283 (150-450) 10^3/uL MPV 9.2 L (9.5-13.5) fL Neut % (Auto) 84.0 H (43.0-75.0) % Lymph % (Auto) 10.8 L (20.5-60.0) % Pacific % (Auto) 4.3 (1.7-12.0) % Eos % (Auto) 0.3 L (0.9-7.0) % Baso % (Auto) 0.4 (0.2-2.0) % Neut # (Auto) 7.9 H (1.4-6.5) 10^3/uL Lymph # (Auto) 1.0 L (1.2-3.8) 10^3/uL Pacific # (Auto) 0.4 (0.3-0.8) 10^3/uL Eos # (Auto) 0.0 (0.0-0.7) 10^3/uL Baso # (Auto) 0.0 (0.0-0.1) 10^3/uL Abs Immat Gran (auto) 0.02 (0.00-0.03) 10^3/uL Imm/Tot Granulo (auto) 0.2 (0.0-0.5) % Sodium 140 (136-145) mmol/L Potassium 4.1 (3.5-5.1) mmol/L Chloride 104 (98-107) mmol/L Carbon Dioxide 29.8 (21.0-32.0) mmol/L Anion Gap 10.3 BUN 19.0 H (7.0-18.0) mg/dL Creatinine 1.29 (0.70-1.30) mg/dL Est GFR ( Amer) >60 (>=60 mL/min/1.73m^2) Est GFR (Non-Af Amer) >60 (>=60 mL/min/1.73m^2) BUN/Creatinine Ratio 14.7 Glucose 101 (74-106) mg/dL Calcium 9.1 (8.5-10.1) mg/dL Total Bilirubin 0.3 (0.2-1.0) mg/dL AST 25 (15-37) U/L ALT 61 (16-63) U/L Alkaline Phosphatase 77 (46-116) U/L Troponin I High Sens <4.0 L (4.0-76.1) pg/mL Total Protein 7.1 (6.4-8.2) g/dL Albumin 3.8 (3.4-5.0) g/dL Globulin 3.3 g/dL Albumin/Globulin Ratio 1.2 Imaging Data Chest x-ray: Attestation: I have reviewed the pertinent imaging results. Radiologist's impression: ITS Impressions Chest X-Ray 02/21/24 17:38 IMPRESSION: No acute heart or lung disease identified. Electronically authenticated by: NGOC PALMER Date: 02/21/2024 17:52 ECG Data Attestation: ?I have reviewed the pertinent ECG results. Interpretation: Measurements Intervals Wiley Rate: 108 P: 76 VT: 136 QRS: 81 QRSD: 102 T: 73 QT: 348 QTc: 411 Interpretive Statements 1102 Sinus arrhythmia 1120 Sinus tachycardia 2420 RSR (QR) in lead V1/V2, consistent with right ventricular conduction delay 9140 abnormal rhythm ECG No previous ECG available for comparison Discharge Plan Discharge Chief Complaint: Anxiety Clinical Impression: Palpitations, Anxiety state Patient Disposition: Home, Self-Care Time of Disposition Decision: 18:43 Condition: Good Mode of Transportation: Private Vehicle Prescriptions / Home Meds: New hydroxyzine HCl 25 mg tablet 25 mg PO Q8H PRN (Reason: anxiety) Qty: 12 0RF Print Language: Lithuanian Instructions: Heart Palpitations (ED), Anxiety (ED) Additional Instructions: Return to the ER for worsening symptoms. Referrals: ALANNA SWIFT [Primary Care Provider] - 1 week Discharge Date/Time: 02/21/24 18:54
--- NOTE | 2024-02-21 17:38 | XR_ITS ---
The [address] [address] Patient Name: INEZ PURCELL MRN: [id number] date: 1990 Sex: M Assigned Patient Location: ER Current Patient Location: ER Accession/Order Number: [id number] Exam Date: 02/21/2024 17:30 Report Date: 02/21/2024 17:52 At the request of: BHANU BRONSON Procedure: XR chest 1V EXAM: XR chest 1V HISTORY: . CP, SOB . COMPARISON: 01/13/2024 TECHNIQUE: Single view of the chest FINDINGS: Heart and vascularity is unremarkable. Lungs are free of focal infiltrates. Grossly no acute bony abnormality is appreciated. XR/XR chest 1V IMPRESSION: No acute heart or lung disease identified. Electronically authenticated by: NGOC PALMER Date: 02/21/2024 17:52
[2024-02-21 18:08] LABS: Basophils Percent Auto 0.4 % (0.2-2.0); Eosinophils Percent Auto 0.3 % (0.9-7.0); Hematocrit 47.9 % (42.0-54.0); Hemoglobin 16.1 g/dL (14.0-18.0); Immature Granulocytes Abs Auto 0.02 10^3/uL (0.00-0.03); Immature Granulocytes Pct Auto 0.2 % (0.0-0.5); Lymphocytes Percent Auto 10.8 % (20.5-60.0); Mean Corpuscular HGB Conc 33.6 g/dL (29.9-35.2); Mean Corpuscular Hemoglobin 29.3 pg (25.9-34.0); Mean Corpuscular Volume 87.2 fL (80.0-94.0); Mean Platelet Volume 9.2 fL (9.5-13.5); Monocytes Absolute Auto 0.4 10^3/uL (0.3-0.8); Monocytes Percent Auto 4.3 % (1.7-12.0); Neutrophils Absolute Auto 7.9 10^3/uL (1.4-6.5); Platelet Count 283 10^3/uL (150-450); Red Blood Count 5.49 10^6/uL (4.70-6.10); Red Cell Distribution Width 12.7 % (11.0-15.0); White Blood Count 9.4 10^3/uL (4.0-11.0)
[2024-02-21 18:30] LABS: Alanine Aminotransferase 61 U/L (16-63); Albumin Globulin Ratio 1.2; Albumin Level 3.8 g/dL (3.4-5.0); Alkaline Phosphatase 77 U/L (46-116); Anion Gap 10.3; Aspartate Amino Transferase 25 U/L (15-37); BUN Creatinine Ratio 14.7; Bilirubin Total 0.3 mg/dL (0.2-1.0); Calcium 9.1 mg/dL (8.5-10.1); Carbon Dioxide 29.8 mmol/L (21.0-32.0); Chloride 104 mmol/L (98-107); Estimated GFR (African America >60 (>=60 mL/min/1.73m^2); Estimated GFR (Non-African Ame >60 (>=60 mL/min/1.73m^2); Globulin 3.3 g/dL; Glucose 101 mg/dL (74-106); Potassium 4.1 mmol/L (3.5-5.1); Sodium 140 mmol/L (136-145); Total Protein 7.1 g/dL (6.4-8.2); Troponin I High Sensitivity <4.0 pg/mL (4.0-76.1)
[2024-02-21] MEDS: HYDROXYZINE HCL 25 MG TABLET PO (18:49)
== END 2024-02-21 18:54 | disposition home or self-care (01) ==
PROVIDERS: Nurse Practitioner Family; Emergency Provider Emergency Medicine
DX: F41.9 Anxiety disorder, unspecified (principal); R00.2 Palpitations
CPT/HCPCS: 36415; 71045; 80053; 84484; 85025; 93005; 99285